=== PATIENT | female | born 1950 | race Caucasian/White ===

== ENCOUNTER 2017-02-19 15:56 | Inpatient (IN) ==
[2017-02-19] MEDS ORDERED: 0.9 % Sodium Chloride 1,000 ML IVC ONE ×2 (16:19→18:05)
[2017-02-19] MEDS ORDERED: Vancomycin 1,000 MG in D5% in Water 250 ML IVPB ONE (16:29)
[2017-02-19] MEDS ORDERED: Piperacillin/Tazobactam 3.375 GM in D5% in Water (Mini-Bag+) 100 ML IVPB ONE (16:29)
[2017-02-19 17:02] LABS: Basophils % 0.3 %; Eosinophils # 0.1 K/mcL (0.0-0.6); Hematocrit 31.7 % (35.3-44.9); Hemoglobin 10.5 g/dL (11.5-15.4); Immature Granulocytes % 0.4 % (0-4); Lymphocytes # 1.6 K/mcL (0.6-4.6); Lymphocytes % 13.2 %; Mean Corpuscular HGB Conc 33.1 g/dL (31.6-35.5); Mean Corpuscular Hemoglobin 29.3 pg (28.0-33.3); Mean Corpuscular Volume 88.5 fL (83.0-100.0); Mean Platelet Volume 8.4 fL (9.4-12.4); Monocytes # 0.8 K/mcL (0.0-1.3); Monocytes % 6.5 %; Neutrophils # 9.5 K/mcL (1.6-8.9); Platelet Count 391 K/mcL (140-400); Red Blood Count 3.58 M/mcL (3.82-4.97); Red Cell Distribution Width 13.4 % (11.5-14.5); Segmented Neutrophils % 78.6 %
--- NOTE | 2017-02-19 17:02 | Emergency Department Note ---
Disposition Clinical Impression: COPD exacerbation Cellulitis Qualifiers: Site of cellulitis: trunk Site of cellulitis of trunk: back Qualified Code(s): L03.312 - Cellulitis of back [any part except buttock] Altered mental status Qualifiers: Altered mental status type: unspecified Qualified Code(s): R41.82 - Altered mental status, unspecified Sepsis Qualifiers: Sepsis type: sepsis due to unspecified organism Qualified Code(s): A41.9 - Sepsis, unspecified organism Disposition: Admitted As Inpatient Condition: Fair General Adult HPI - General Chief complaint: ED Fever Stated complaint: fever Time Seen by Provider: 02/19/17 15:59 Source: patient, family, EMS Limitations: no limitations Nursing Notes Reviewed: Yes Vital Signs Reviewed: Yes - History of Present Illness HPI Narrative: 66-year-old female presents to the ED via EMS for complaints of a fever. Patient had thoracolumbar laminectomy done 1 month ago in [place] by Dr. Valadez. She states she had her 1 month appointment yesterday and she had an abscess on the incision site and the surgeon removed a chair and put her on a five-day course of Keflex. That visit she stated that her back is been in more pain and she has noted a fever of 101 at home. She states the area in her back is a 2 out of 10 pain when she is just sitting there with no radiation. She declines it as a stabbing pain that does not radiate. She does take 5 mg of hydrocodone for the pain and she says that takes care of a lot of the back pain. After speaking with family they stated that she may be taking more hydrocodone and she is prescribed as there were 94 pills in there today and she was prescribed 100 yesterday. She is to take one every 6 hours. Also states she has not been acting herself. These said she is talking about and being in the yard and washing jeans where she does not have a washer or a dryer. They also state that the wound on her back has gotten increasingly worse since yesterday. They stated the wound was a very small reddened area about the size of a nickel. Today when they changed the wound after the surgeon removed the suture they said it is quadrupled in size and has now purulent pus coming out of it. Pain Scale: 4 - Related Data Home Medications Medication Instructions Recorded Confirmed Acetaminophen [Tylenol] 500 mg PO Q6H PRN 02/19/17 02/19/17 Albuterol Sulfate [Ventolin Hfa] 2 puff IH Q4H PRN 02/19/17 02/19/17 Alendronate Sodium [Fosamax] 70 mg PO QWEEK 02/19/17 02/19/17 Antiox #11/Om3/Dha/Epa/Lut/Jasen 1 each PO BID 02/19/17 02/19/17 [Eye Health Adult 50+ Softgel] Cholecalciferol (D-3) [Vitamin D] 1,000 unit PO DAILY 02/19/17 02/19/17 Cyclobenzaprine [Flexeril] 10 mg PO TID PRN 02/19/17 02/19/17 DULoxetine [Cymbalta] 30 mg PO DAILY 02/19/17 02/19/17 Fluticasone Propionate Nasal 50 mcg NS BID 02/19/17 02/19/17 [Flonase] Fluticasone/Salmeterol [Advair Hfa 2 puff IH BID 02/19/17 02/19/17 230-21 Mcg Inhaler] Gabapentin [Neurontin] 600 mg PO TID 02/19/17 02/19/17 L. Acidophilus/Pectin, [place] 1 each PO DAILY 02/19/17 02/19/17 [Acidophilus Probiotic Capsule] LORazepam [Ativan] 1 mg PO TID PRN 02/19/17 02/19/17 Meloxicam [Mobic] 15 mg PO DAILY 02/19/17 02/19/17 Montelukast [Singulair] 10 mg PO HS 02/19/17 02/19/17 OxyCODONE/APAP 5/325 [Percocet 1 each PO Q6HR PRN 02/19/17 02/19/17 5/325 MG] Potassium Gluconate [Potassium] 99 mg PO DAILY 02/19/17 02/19/17 Trazodone HCl 100 mg PO HS 02/19/17 02/19/17 cephALEXin [Keflex] 500 mg PO QID 02/19/17 02/19/17 Allergies Allergy/AdvReac Type Severity Reaction Status Date / Time Sulfa (Sulfonamide AdvReac Rash Verified 02/19/17 16:07 Antibiotics) Constitutional: Reports: fever, weakness. Denies: chills, weight change Eyes: Denies: eye pain, eye discharge, vision change ENT ED: Denies: ear pain, throat pain, dental pain, hearing loss, epistaxis, congestion, dysphagia Cardiovascular: Denies: chest pain, palpitations, dyspnea on exertion, edema, syncope Respiratory: Denies: cough, dyspnea, wheezes, hemoptysis, stridor Gastrointestinal: Denies: abdominal pain, nausea, vomiting, diarrhea, constipation, hematemesis, melena, hematochezia Genitourinary: Denies: dysuria, frequency, hematuria, discharge Musculoskeletal: Denies: back pain, neck pain, arthralgia, myalgia Integumentary: Denies: rash, abrasion, lesions Neurological: Reports: weakness. Denies: headache, numbness, paresthesias, confusion, abnormal gait, vertigo Psychiatric: Denies: anxiety, depression, suicidal thoughts, homicidal thoughts , auditory hallucinations, visual hallucinations Endocrine: Reports: fatigue Hematological/Lymphatic: Denies: easy bleeding, easy bruising Past Medical History - Past Medical History Medical history: Reports: arthritis, COPD, migraine Surgical history: Reports: cholecystectomy, other Psychiatric history: Reports: anxiety, depression, PTSD [employer] history: Reports: bilateral tubal ligation - Social History Smoking Status: Current every day smoker Smokeless Tobacco Status: No Alcohol use: Reports: none Drug use: Reports: none Physical Exam - General General appearance: alert, in no apparent distress - Head Head exam: atraumatic, normocephalic, normal inspection - Chest Chest inspection: Present: normal inspection, symmetric chest wall rise - Respiratory Respiratory exam: Present: normal lung sounds bilaterally - Cardiovascular Cardiovascular exam: Present: normal rhythm, tachycardia, normal heart sounds - Abdominal Exam Abdominal exam: Present: soft, Non-Tender. Absent: tenderness, distention, guarding, rebound, rigidity - Back Exam Back exam: Present: other (Large 10 cm fluctuant draining with pus abscess directly in line with the incision site. Very painful to touch.) - Neurological Exam Neurological exam: Present: alert, oriented X3 (Is altered as she is mentioning things that she never happened happen to her. But she is oriented to person place and time) Course Course Narrative: 66-year-old female presents to the ED with complaints of rash and abscess on her back from surgical incision site status post 4 weeks ago. On arrival patient had respirations of 24/m she was tachycardic at 120s, and had a fever of 100.4. Therefore she met surgical criteria and the sepsis protocol was started. She was started on vancomycin and Zosyn after blood cultures were done. A CT of the thoracolumbar area was done to get better look at the abscess. A CTA of the chest was also done due to patient having shortness of breath and hypoxic for possible pulmonary embolism. Patient and family are okay with this plan. Vital Signs Temperature 100.4 F H 02/19/17 15:57 Pulse Rate 114 02/19/17 15:57 Respiratory Rate 22 02/19/17 15:57 Blood Pressure 114/67 02/19/17 15:57 O2 Sat by Pulse Oximetry 88 02/19/17 15:57 Temperature 100.4 F H 02/19/17 15:57 Pulse Rate 99 02/19/17 18:54 Respiratory Rate 16 02/19/17 22:11 Blood Pressure 140/80 02/19/17 22:11 O2 Sat by Pulse Oximetry 98 02/19/17 20:10 Oxygen Delivery Oxygen Delivery Nasal Cannula Medical Decision Making - MDM Narrative Medical decision making narrative: 66-year-old female presents to the ED complaining of fever and abscess on back from surgical site. Surgery was a laminectomy done by Dr. Jones and lidia Valentine , 4 weeks ago. Upon Arrival patient had respirations about 20 a fever of 100.4 and was tachycardic in the 120s and a likely site for infection therefore she met surge criteria have assessed per Marshal was started. IV did blood cultures and then started patient on vancomycin and Zosyn for empiric treatment. Also ordered CT scan of the thoracolumbar region to check for abscess tracking to the surgical site. Patient was also on oxygen upon arrival and was still hypoxic at 88%. Due to recent surgery and being hypoxic will order a CTA of the chest to rule out PE. 2053- Revaluation of the patient she is in bed sleeping, or waking up she is still confused and is having a slight amount shortness of breath. 2 nebs were ordered to help with her breathing as this could be a COPD exacerbation. After looking at lab she did have a white count of over 12,000, mild anemia, and no other lab abnormalities. Chest x-ray showed no acute pulmonary changes. CT of chest showed no pulmonary embolism but did have calcified opacities that were unchanged from previous CT. Lumbar and thoracic CT with contrast did not show abscess. After talking with patient and this being a nonsurgical matter we will try to admit this patient for sepsis, COPD exacerbation and altered mental status. He is in agreement with this plan. 2117-after talking to he has agreed to except the patient for admit. Patient is agreeable with this plan. Chest X-Ray 02/19/17 16:20 IMPRESSION: No acute abnormalities are seen in the chest D/ / Delgado Joyce MD / Delgado Joyce MD Interpreting Provider: Delgado Joyce MD Lumbar Spine CT 02/19/17 16:25 IMPRESSION: Recent postsurgical changes of the thoracolumbar spine, with removal of the transpedicular screws at T8 and extension of the posterior fusion hardware cranially. The posterior fusion hardware extends from T8-L5. The bipedicular T8 screws and the left T9 pedicular screw extends lateral to the vertebral bodies, through the costovertebral junction, of uncertain clinical significance. Otherwise no perihardware lucencies to suggest hardware failure. The study is limited due to associated streak artifact from the hardware. There is mild/moderate inflammatory changes within the back soft tissues, possibly representing postsurgical changes. Otherwise no formed fluid collection to suggest abscess. Stable appearance of the T11 compression fracture with mild 5 mm retropulsion of fragments into the spinal canal. Compared to the prior study, there is minimal compression of the right aspect of the T8 superior endplate. Stable severe degenerative changes of the lumbar spine as above. D/ / 02/19/2017 20:11:49 Koko Soto MD / jerardo Interpreting Provider: Koko Soto MD Thoracic Spine CT 02/19/17 16:25 IMPRESSION: Recent postsurgical changes of the thoracolumbar spine, with removal of the transpedicular screws at T8 and extension of the posterior fusion hardware cranially. The posterior fusion hardware extends from T8-L5. The bipedicular T8 screws and the left T9 pedicular screw extends lateral to the vertebral bodies, through the costovertebral junction, of uncertain clinical significance. Otherwise no perihardware lucencies to suggest hardware failure. The study is limited due to associated streak artifact from the hardware. There is mild/moderate inflammatory changes within the back soft tissues, possibly representing postsurgical changes. Otherwise no formed fluid collection to suggest abscess. Stable appearance of the T11 compression fracture with mild 5 mm retropulsion of fragments into the spinal canal. Compared to the prior study, there is minimal compression of the right aspect of the T8 superior endplate. Stable severe degenerative changes of the lumbar spine as above. D/ / 02/19/2017 20:11:49 Koko Soto MD / jerardo Interpreting Provider: Koko Soto MD Chest CTA 02/19/17 17:27 IMPRESSION: No CT evidence pulmonary embolism. Stable 7 mm right lower lobe noncalcified nodule, unchanged since the most remote available study 06/09/2015. See below recommendation. Thoracic spine CT is reported separately. D/ / Kenzie Patrick Cha, MD / Kenzie Patrick Cha, MD Interpreting Provider: Kenzie Patrick Cha, MD - Medical Records Medical records reviewed: Yes I reviewed the patient's medical records. - Lab Data Lab results reviewed: Yes I reviewed the patient's lab results. Result diagrams: 02/19/17 16:48 02/19/17 16:48 Lab Results 02/19/17 02/19/17 02/19/17 Range/Units 16:44 16:48 16:48 WBC 12.1 H (4.3-11.1) K/mcL RBC 3.58 L (3.82-4.97) M/mcL Hgb 10.5 L (11.5-15.4) g/dL Hct 31.7 L (35.3-44.9) % MCV 88.5 (83.0-100.0) fL MCH 29.3 (28.0-33.3) pg MCHC 33.1 (31.6-35.5) g/dL RDW 13.4 (11.5-14.5) % Plt Count 391 (140-400) K/mcL MPV 8.4 L (9.4-12.4) fL Immature Gran % 0.4 (0-4) % Seg Neutrophils % 78.6 % Lymphocytes % 13.2 % Monocytes % 6.5 % Eosinophils % 1.0 % Basophils % 0.3 % Neutrophils # 9.5 H (1.6-8.9) K/mcL Lymphocytes # 1.6 (0.6-4.6) K/mcL Monocytes # 0.8 (0.0-1.3) K/mcL Eosinophils # 0.1 (0.0-0.6) K/mcL Basophils # 0.0 (0.0-0.2) K/mcL PT 14.0 H (9.4-12.1) Seconds INR 1.3 APTT 31.1 (26.0-36.0) Seconds VBG pH (7.32-7.42) pH Units VBG pCO2 (41-51) mmHg VBG pO2 (25-40) mmHg VBG HCO3 (21-27) mEq/L Sodium (136-145) mEq/L Potassium (3.5-4.5) mEq/L Chloride (98-109) mEq/L Carbon Dioxide (19-29) mEq/L BUN (7-20) mg/dL Creatinine (0.57-1.11) mg/dL Est GFR ( Amer) (> 60) Est GFR (Non-Af Amer) (> 60) BUN/Creatinine Ratio (6-26) Glucose (70-99) mg/dL Calculated Osmolality (280-300) Lactic Acid (0.5-2.2) mmol/L Calcium (8.6-10.8) mg/dL Phosphorus (2.3-4.7) mg/dL Magnesium (1.6-2.6) mg/dL Total Bilirubin (0.2-1.2) mg/dL Direct Bilirubin (0.0-0.5) mg/dL Indirect Bilirubin (0.0-1.2) mg/dL AST (5-34) Units/L ALT (0-55) Units/L Alkaline Phosphatase (38-126) Units/L Troponin I (0-0.03) ng/mL Serum Total Protein (6.0-8.3) g/dL Albumin (3.5-5.0) g/dL Globulin (2.4-3.5) g/dL Albumin/Globulin Ratio (1.1-2.2) Urine Color Yellow (Yellow) Urine Clarity Clear (Clear) Urine pH 6.5 (5.0-8.0) pH Units Ur Specific [place] 1.007 L (1.010-1.025) Urine Protein Negative (Neg-Trace) mg/dL Urine Glucose (UA) Normal (Normal) mg/dL Urine Ketones Negative (Negative) mg/dL Urine Blood Negative (Negative) Urine Nitrite Negative (Negative) Urine Bilirubin Negative (Negative) Urine Urobilinogen Normal (Normal) mg/dL Ur Leukocyte Esterase Small H (Negative) Urine Microscopic RBC 0-3 (0-3) per hpf Urine Microscopic WBC 0-3 (0-3) per hpf Ur Squamous Epith Cells Few (None-Few) per lpf Urine Bacteria Few (None-Few) per hpf Ur Culture Indicated? YES A (NO) 02/19/17 02/19/17 02/19/17 Range/Units 16:48 16:48 16:48 WBC (4.3-11.1) K/mcL RBC (3.82-4.97) M/mcL Hgb (11.5-15.4) g/dL Hct (35.3-44.9) % MCV (83.0-100.0) fL MCH (28.0-33.3) pg MCHC (31.6-35.5) g/dL RDW (11.5-14.5) % Plt Count (140-400) K/mcL MPV (9.4-12.4) fL Immature Gran % (0-4) % Seg Neutrophils % % Lymphocytes % % Monocytes % % Eosinophils % % Basophils % % Neutrophils # (1.6-8.9) K/mcL Lymphocytes # (0.6-4.6) K/mcL Monocytes # (0.0-1.3) K/mcL Eosinophils # (0.0-0.6) K/mcL Basophils # (0.0-0.2) K/mcL PT (9.4-12.1) Seconds INR APTT (26.0-36.0) Seconds VBG pH (7.32-7.42) pH Units VBG pCO2 (41-51) mmHg VBG pO2 (25-40) mmHg VBG HCO3 (21-27) mEq/L Sodium 129 L (136-145) mEq/L Potassium 3.6 (3.5-4.5) mEq/L Chloride 100 (98-109) mEq/L Carbon Dioxide 23 (19-29) mEq/L BUN 7 (7-20) mg/dL Creatinine 0.61 (0.57-1.11) mg/dL Est GFR ( Amer) > 60 (> 60) Est GFR (Non-Af Amer) > 60 (> 60) BUN/Creatinine Ratio 11 (6-26) Glucose 95 (70-99) mg/dL Calculated Osmolality 266 L (280-300) Lactic Acid 0.8 (0.5-2.2) mmol/L Calcium 8.1 L (8.6-10.8) mg/dL Phosphorus 3.0 (2.3-4.7) mg/dL Magnesium 1.2 L (1.6-2.6) mg/dL Total Bilirubin 0.4 (0.2-1.2) mg/dL Direct Bilirubin 0.1 (0.0-0.5) mg/dL Indirect Bilirubin 0.3 (0.0-1.2) mg/dL AST 14 (5-34) Units/L ALT 6 (0-55) Units/L Alkaline Phosphatase 131 H (38-126) Units/L Troponin I 0.01 (0-0.03) ng/mL Serum Total Protein 5.8 L (6.0-8.3) g/dL Albumin 2.7 L (3.5-5.0) g/dL Globulin 3.1 (2.4-3.5) g/dL Albumin/Globulin Ratio 0.9 L (1.1-2.2) Urine Color (Yellow) Urine Clarity (Clear) Urine pH (5.0-8.0) pH Units Ur Specific [place] (1.010-1.025) Urine Protein (Neg-Trace) mg/dL Urine Glucose (UA) (Normal) mg/dL Urine Ketones (Negative) mg/dL Urine Blood (Negative) Urine Nitrite (Negative) Urine Bilirubin (Negative) Urine Urobilinogen (Normal) mg/dL Ur Leukocyte Esterase (Negative) Urine Microscopic RBC (0-3) per hpf Urine Microscopic WBC (0-3) per hpf Ur Squamous Epith Cells (None-Few) per lpf Urine Bacteria (None-Few) per hpf Ur Culture Indicated? (NO) 02/19/17 Range/Units 17:10 WBC (4.3-11.1) K/mcL RBC (3.82-4.97) M/mcL Hgb (11.5-15.4) g/dL Hct (35.3-44.9) % MCV (83.0-100.0) fL MCH (28.0-33.3) pg MCHC (31.6-35.5) g/dL RDW (11.5-14.5) % Plt Count (140-400) K/mcL MPV (9.4-12.4) fL Immature Gran % (0-4) % Seg Neutrophils % % Lymphocytes % % Monocytes % % Eosinophils % % Basophils % % Neutrophils # (1.6-8.9) K/mcL Lymphocytes # (0.6-4.6) K/mcL Monocytes # (0.0-1.3) K/mcL Eosinophils # (0.0-0.6) K/mcL Basophils # (0.0-0.2) K/mcL PT (9.4-12.1) Seconds INR APTT (26.0-36.0) Seconds VBG pH 7.32 (7.32-7.42) pH Units VBG pCO2 44 (41-51) mmHg VBG pO2 57 H (25-40) mmHg VBG HCO3 22.7 (21-27) mEq/L Sodium (136-145) mEq/L Potassium (3.5-4.5) mEq/L Chloride (98-109) mEq/L Carbon Dioxide (19-29) mEq/L BUN (7-20) mg/dL Creatinine (0.57-1.11) mg/dL Est GFR ( Amer) (> 60) Est GFR (Non-Af Amer) (> 60) BUN/Creatinine Ratio (6-26) Glucose (70-99) mg/dL Calculated Osmolality (280-300) Lactic Acid (0.5-2.2) mmol/L Calcium (8.6-10.8) mg/dL Phosphorus (2.3-4.7) mg/dL Magnesium (1.6-2.6) mg/dL Total Bilirubin (0.2-1.2) mg/dL Direct Bilirubin (0.0-0.5) mg/dL Indirect Bilirubin (0.0-1.2) mg/dL AST (5-34) Units/L ALT (0-55) Units/L Alkaline Phosphatase (38-126) Units/L Troponin I (0-0.03) ng/mL Serum Total Protein (6.0-8.3) g/dL Albumin (3.5-5.0) g/dL Globulin (2.4-3.5) g/dL Albumin/Globulin Ratio (1.1-2.2) Urine Color (Yellow) Urine Clarity (Clear) Urine pH (5.0-8.0) pH Units Ur Specific [place] (1.010-1.025) Urine Protein (Neg-Trace) mg/dL Urine Glucose (UA) (Normal) mg/dL Urine Ketones (Negative) mg/dL Urine Blood (Negative) Urine Nitrite (Negative) Urine Bilirubin (Negative) Urine Urobilinogen (Normal) mg/dL Ur Leukocyte Esterase (Negative) Urine Microscopic RBC (0-3) per hpf Urine Microscopic WBC (0-3) per hpf Ur Squamous Epith Cells (None-Few) per lpf Urine Bacteria (None-Few) per hpf Ur Culture Indicated? (NO) - Radiology Data Radiology results reviewed: Yes I reviewed the patient's radiology results. - EKG Data EKG #1 EKG attestation: Yes I reviewed and interpreted this EKG. EKG results narrative: EGD done 1638. Sinus tachycardia rate 99, ND interval 139, QRS 97, QTC 408, normal axis no acute ST changes. No acute T-wave abnormalities. Poor R wave progression. No signs of WPW or Brugada syndrome. Compared to EKG done where there is no acute changes based on old EKG. EKG shows normal: sinus rhythm Rate: tachycardia Rhythm: NSR [place]/QRS: normal When compared to previous EKG there are: no significant changes Interpretation: no acute changes, normal EKG, unchanged when compared to prior tracing (date) Critical Care Time Critical Care Time: Yes Total Critical Care Time: 35 Attestation: The high probability of a clinically significant, sudden or life threatening deterioration of the [resp, cv] system(s) required my full and direct attention , intervention and personal management. The aggregate critical care time was [35 ] minutes. This time is in addition to time spent performing reported procedures but includes the following: [X] Data Review and interpretation [X] Patient assessment and monitoring of vital signs [X] Documentation [X] Medication orders and management Attestation Statement - Attestation Attestation: I personally interviewed and examined this patient and my medical decision- making was reviewed with the Resident Physician, Dr. Sim. I agree with the documented findings, disposition and treatment plan as described except to the extent set forth below. Patient is a 66-year-old white female who presented to the emergency department for evaluation of infection of the postop wound. Patient had radical lumbar back surgery performed in [facility] one month ago. Her one-month checkup was yesterday she was seen in the office had a retained stitch removed in the wrist and slight redness around the wound that family describes about the size of a nickel, and patient was started on Keflex. Patient has not quite had 24 hours of antibiotics and states that the pain to the affected area of the swelling in the size the redness has dramatically increased. Since that time she developed a fever and some mild confusion at home and has also been requiring more oxygen at home for shortness of breath. Patient afebrile and based on vital signs we initiated sepsis protocol. I agree with patient's physical exam findings as documented. On lab evaluation patient with mild leukocytosis, normal lactate, normal chest x -ray and CT scan of the chest. CT of the thoracic and lumbar spine does not show any appreciable abscess just changes consistent with cellulitis. Patient has already been covered with empiric IV antibiotics, and vitals have improved with IV fluids. Since there is no reason for acute surgical intervention at this time we will admit the patient medically for an acute exacerbation of COPD as well as cellulitis of her postop wound. Case discussed with hospitalist who accepted patient for admission here at [place].
[2017-02-19 17:14] LABS: Bilirubin,Urine Negative (Negative); Blood,Urine Negative (Negative); Clarity,Urine Clear (Clear); Color,Urine Yellow (Yellow); Glucose,Urine (UA) Normal (Normal); Ketones,Urine Negative (Negative); Leukocyte Esterase,Urine Small (Negative); Nitrite,Urine Negative (Negative); PH,Urine 6.5 pH Units (5.0-8.0); Protein,Urine Negative (Neg-Trace); Specific Gravity,Urine 1.007 (1.010-1.025); Urobilinogen,Urine Normal (Normal)
[2017-02-19 17:14] LABS: INR 1.3
[2017-02-19 17:16] LABS: Activated Partial Thrombo Time 31.1 Seconds (26.0-36.0)
[2017-02-19 17:18] LABS: Alanine Aminotransferase 6 Units/L (0-55); Albumin 2.7 g/dL (3.5-5.0); Albumin/Globulin Ratio 0.9 (1.1-2.2); Alkaline Phosphatase 131 Units/L (38-126); Aspartate Amino Transferase 14 Units/L (5-34); BUN/Creatinine Ratio 11 (6-26); Bilirubin,Direct 0.1 mg/dL (0.0-0.5); Bilirubin,Indirect 0.3 mg/dL (0.0-1.2); Bilirubin,Total 0.4 mg/dL (0.2-1.2); Blood Urea Nitrogen 7 mg/dL (7-20); Calcium 8.1 mg/dL (8.6-10.8); Carbon Dioxide 23 mEq/L (19-29); Chloride 100 mEq/L (98-109); Globulin 3.1 g/dL (2.4-3.5); Glucose 95 mg/dL (70-99); Magnesium 1.2 mg/dL (1.6-2.6); Osmolality,Calculated 266 (280-300); Potassium 3.6 mEq/L (3.5-4.5); Sodium 129 mEq/L (136-145); Total Protein 5.8 g/dL (6.0-8.3); eGFR For African Americans > 60 (> 60); eGFR For Non-African Americans > 60 (> 60)
[2017-02-19 17:25] LABS: VBG HCO3 22.7 mEq/L (21-27); VBG PH 7.32 pH Units (7.32-7.42)
[2017-02-19 17:25] LABS: Bacteria,Urine Few per hpf (None-Few); RBC,Urine 0-3 per hpf (0-3); Squamous Epithelial Cell,Urine Few per lpf (None-Few); WBC,Urine 0-3 per hpf (0-3)
[2017-02-19] MEDS ORDERED: Ipratropium/Albuterol Neb 3 ML IH ONE (19:58)
[2017-02-20] MEDS ORDERED: Acetaminophen 325 MG TABLET PO PRN (01:56)
[2017-02-20] MEDS ORDERED: Naloxone 0.4 MG/ML INJ IVP PRN (01:56)
[2017-02-20] MEDS ORDERED: *HR* Morphine 2 MG/ML SYRINGE IVP PRN (01:56)
[2017-02-20] MEDS ORDERED: Vancomycin 1,000 MG in D5% in Water 250 ML IVPB SCH (02:00)
[2017-02-20] MEDS ORDERED: NON-FORMULARY MEDICATION 1 EACH EACH (Alendronate Sodium [Fosamax] 70 MG) PO SCH (02:00)
[2017-02-20] MEDS ORDERED: Magnesium Sulfate 2 GM in D5% in Water 100 ML IVPB ONE (02:07)
--- NOTE | 2017-02-20 02:09 | Internal Med History&Physical ---
Date of Encounter: 02/20/17 Time of Encounter: 02:08 Assessment and Plan (1) Cellulitis of mid back region Current visit: Yes Status: Acute Pt is s/p thoracolumbar laminectomy done 1 month ago in [place] by Dr. Valadez. She was noted to have surgical site infection which is worsening. Patient has a cellulitis but the presence of abscess is uncertain. CT scan of the back is compromised due to artifacts from the hardware. We will obtain ultrasound scan to evaluate for abscess. Will check CRP and ESR. If there is any evidence of abscess - consider orthopedic consultation here versus transfer to her operating surgeon. Treat with vancomycin and Zosyn intravenously. (2) Sepsis Current visit: Yes Status: Acute Likely secondary to skin/soft tissue infection. treat with Vancomycin and zosyn. Qualifiers: Sepsis type: sepsis due to unspecified organism Qualified Code(s): A41.9 - Sepsis, unspecified organism (3) COPD (chronic obstructive pulmonary disease) Current visit: Yes Status: Chronic Treat with bronchodilators Qualifiers: COPD type: unspecified COPD Qualified Code(s): J44.9 - Chronic obstructive pulmonary disease, unspecified (4) Altered mental status Current visit: Yes Status: Acute Possibly related to sepsis. Improved now Qualifiers: Altered mental status type: unspecified Qualified Code(s): R41.82 - Altered mental status, unspecified (5) DVT prophylaxis Current visit: Yes Status: Acute subcutaneous heparin Internal Medicine - H&P: HPI Chief complaint: Fever Admitted From: Emergency Dept Plans for Post Hospital Care: Home History of present illness: Ms. Mckoy is a 66 year old female With h/o COPD and h/o prior back surgeries, with last surgery - thoracolumbar laminectomy done 1 month ago in [place] by Dr. Valadez. She had her 1 month appointment on 02/18/17 and was noted to have some swelling at the incision site. Patient reports that, there was apparently suture material, which was removed and the doctor expressed some pus. She was started on Keflex. She notices some pus at home, swelling, fever, and pain at the site. Pain is Sharp, moderate, non radiating. She also reports that she was acting goofy at home. She reports that she had been to her PCP earlier this week for cramps in the legs and was thought to be dehydrated and was advised to drink plenty of fluids. She reports chronic cough with whitish sputum production. She has exertional shortness of breath. She denies chest pain. She denies abdominal pain, nausea, vomiting, dysuria, hematuria, changes in bowel habits. She was evaluated in the emergency department and was thought to have cellulitis of the back. She was given vancomycin and Zosyn. She is admitted to the hospitalist service for further management. She was hypoxic with oxygen saturation of 88% in the emergency department. She had a CT and chest done, which was negative for pulmonary embolism. CT of the spine did not show definite abscess, but the study was limited by artifacts from the hardware. Past Med Surg Social Fam HX - Past Medical History Medical history: arthritis, COPD Psychiatric history: anxiety, depression, PTSD - Past Surgical History Surgical History: cholecystectomy, other - Social History Smoking Status: Former smoker Smokeless Tobacco Status: No Alcohol use: none Drug use: none - Family History Father Name: VERN DUFF Living Status: Age at : 73 Cause of : TRAMA Hx Family Cardiac Disorders: Yes Internal Medicine - H&P: Meds Acetaminophen [Tylenol] 500 mg PO Q6H PRN 02/19/17 [History] Albuterol Sulfate [Ventolin Hfa] 2 puff IH Q4H PRN 02/19/17 [History] Alendronate Sodium [Fosamax] 70 mg PO QWEEK 02/19/17 [History] Antiox #11/Om3/Dha/Epa/Lut/Jasen [Eye Health Adult 50+ Softgel] 1 each PO BID [History] Cholecalciferol (D-3) [Vitamin D] 1,000 unit PO DAILY 02/19/17 [History] Cyclobenzaprine [Flexeril] 10 mg PO TID PRN 02/19/17 [History] DULoxetine [Cymbalta] 30 mg PO DAILY 02/19/17 [History] Fluticasone Propionate Nasal [Flonase] 50 mcg NS BID 02/19/17 [History] Fluticasone/Salmeterol [Advair Hfa 230-21 Mcg Inhaler] 2 puff IH BID 02/19/17 [ History] Gabapentin [Neurontin] 600 mg PO TID 02/19/17 [History] L. Acidophilus/Pectin, [place] [Acidophilus Probiotic Capsule] 1 each PO DAILY [History] LORazepam [Ativan] 1 mg PO TID PRN 02/19/17 [History] Meloxicam [Mobic] 15 mg PO DAILY 02/19/17 [History] Montelukast [Singulair] 10 mg PO HS 02/19/17 [History] OxyCODONE/APAP 5/325 [Percocet 5/325 MG] 1 each PO Q6HR PRN 02/19/17 [History] Potassium Gluconate [Potassium] 99 mg PO DAILY 02/19/17 [History] Trazodone HCl 100 mg PO HS 02/19/17 [History] cephALEXin [Keflex] 500 mg PO QID 02/19/17 [History] Allergies Sulfa (Sulfonamide Antibiotics) Adverse Reaction (Verified 02/19/17 16:07) Rash All Systems PM: A 10-system review of systems was performed and is negative for pertinent findings except as documented above in the HPI. - Constitutional Vitals: Temp Pulse Resp BP Pulse Ox 98.4 F 109 20 122/75 95 02/20/17 00:21 02/20/17 00:21 02/20/17 00:21 02/20/17 00:21 02/20/17 00:21 Exam: General: Not in acute distress at the time of my evaluation HEENT: Oral mucosa is moist. No conjunctival palor or scleral icterus Neck: No obvious neck swellings Lungs: Bilaterally clear to present. Few right basilar crackles Cardiac: Regular rate and rhythm. No significant murmurs Abdomen: Soft, non tender. Bowel sounds present Genitourinary: No browne catheter Neurological: Alert and oriented. No gross localizing deficits Psych: Not aggressive or agitated Extremities: no significant leg edema. Spine: There is incision over the thoracic and lumbar spine. There is an oval swelling over the lower thoracic spine (no fluctuance), with an opening, but no spontaneous drainage present. There is overlying erythema, local warmth present Skin: No generalized rash Internal Med - H&P Results - Labs CBC & Chem 7: 02/20/17 06:41 02/20/17 06:41 - EKG Data -: EKG Interpreted by Myself EKG shows normal: sinus rhythm - EKG Data EKG comments: Poor R wave progress in the anterior leads 02/20/17 06:03 - Impressions ITS Impressions Chest X-Ray 02/19/17 16:20 IMPRESSION: No acute abnormalities are seen in the chest D/ / Delgado Joyce MD / Delgado Joyce MD Interpreting Provider: Delgado Joyce MD Lumbar Spine CT 02/19/17 16:25 IMPRESSION: Recent postsurgical changes of the thoracolumbar spine, with removal of the transpedicular screws at T8 and extension of the posterior fusion hardware cranially. The posterior fusion hardware extends from T8-L5. The bipedicular T8 screws and the left T9 pedicular screw extends lateral to the vertebral bodies, through the costovertebral junction, of uncertain clinical significance. Otherwise no perihardware lucencies to suggest hardware failure. The study is limited due to associated streak artifact from the hardware. There is mild/moderate inflammatory changes within the back soft tissues, possibly representing postsurgical changes. Otherwise no formed fluid collection to suggest abscess. Stable appearance of the T11 compression fracture with mild 5 mm retropulsion of fragments into the spinal canal. Compared to the prior study, there is minimal compression of the right aspect of the T8 superior endplate. Stable severe degenerative changes of the lumbar spine as above. D/ / 02/19/2017 20:11:49 Koko Soto MD / jerardo Interpreting Provider: Koko Soto MD Thoracic Spine CT 02/19/17 16:25 IMPRESSION: Recent postsurgical changes of the thoracolumbar spine, with removal of the transpedicular screws at T8 and extension of the posterior fusion hardware cranially. The posterior fusion hardware extends from T8-L5. The bipedicular T8 screws and the left T9 pedicular screw extends lateral to the vertebral bodies, through the costovertebral junction, of uncertain clinical significance. Otherwise no perihardware lucencies to suggest hardware failure. The study is limited due to associated streak artifact from the hardware. There is mild/moderate inflammatory changes within the back soft tissues, possibly representing postsurgical changes. Otherwise no formed fluid collection to suggest abscess. Stable appearance of the T11 compression fracture with mild 5 mm retropulsion of fragments into the spinal canal. Compared to the prior study, there is minimal compression of the right aspect of the T8 superior endplate. Stable severe degenerative changes of the lumbar spine as above. D/ / 02/19/2017 20:11:49 Koko Soto MD / jerardo Interpreting Provider: Koko Soto MD Chest CTA 02/19/17 17:27 IMPRESSION: No CT evidence pulmonary embolism. Stable 7 mm right lower lobe noncalcified nodule, unchanged since the most remote available study 06/09/2015. See below recommendation. Thoracic spine CT is reported separately. D/ / Knezie Patrick Cha, MD / Kenzie Patrick Cha, MD Interpreting Provider: Kenzie Patrick Cha, MD
[2017-02-20] MEDS: 0.9 % Sodium Chloride 1,000 ML IVC SCH (02:30)
[2017-02-20] MEDS: *HR* Heparin 5,000 UNIT/ML VIAL SQ SCH ×3 (06:17→21:11)
[2017-02-20] MEDS: Vancomycin 1,000 MG in D5% in Water 250 ML IVPB SCH ×2 (06:17→18:39)
[2017-02-20 07:01] LABS: Basophils % 0.3 %; Eosinophils # 0.3 K/mcL (0.0-0.6); Eosinophils % 2.7 %; Hematocrit 31.9 % (35.3-44.9); Hemoglobin 10.3 g/dL (11.5-15.4); Immature Granulocytes % 0.2 % (0-4); Lymphocytes % 20.9 %; Mean Corpuscular HGB Conc 32.3 g/dL (31.6-35.5); Mean Corpuscular Hemoglobin 29.3 pg (28.0-33.3); Mean Corpuscular Volume 90.9 fL (83.0-100.0); Mean Platelet Volume 8.8 fL (9.4-12.4); Monocytes % 10.9 %; Neutrophils # 6.1 K/mcL (1.6-8.9); Platelet Count 389 K/mcL (140-400); Red Blood Count 3.51 M/mcL (3.82-4.97); Red Cell Distribution Width 13.8 % (11.5-14.5)
[2017-02-20 07:13] LABS: BUN/Creatinine Ratio 5 (6-26); Calcium 8.3 mg/dL (8.6-10.8); Carbon Dioxide 24 mEq/L (19-29); Chloride 108 mEq/L (98-109); Glucose 109 mg/dL (70-99); Magnesium 2.1 mg/dL (1.6-2.6); Osmolality,Calculated 279 (280-300); Potassium 3.9 mEq/L (3.5-4.5); eGFR For African Americans > 60 (> 60); eGFR For Non-African Americans > 60 (> 60)
[2017-02-20 07:17] LABS: Blood Urea Nitrogen 3 mg/dL (7-20); Sodium 136 mEq/L (136-145)
[2017-02-20] MEDS: Piperacillin/Tazobactam 3.375 GM in D5% in Water (Mini-Bag+) 100 ML IVPB SCH ×2 (08:16→18:37)
[2017-02-20] MEDS: Gabapentin 300 MG CAPSULE PO SCH ×3 (08:19→21:10)
[2017-02-20] MEDS: Cholecalciferol (D-3) 1,000 UNIT TABLET PO SCH (08:19)
[2017-02-20] MEDS: Lactobacillus 1 EACH CAP.SPRINK PO SCH (08:20)
[2017-02-20] MEDS: Fluticasone Propionate Nasal 50 MCG/SPRAY BOTTLE NS SCH ×2 (08:32→21:10)
[2017-02-20] MEDS: *HR* OxyCODONE/APAP 5/325 TABLET PO PRN ×2 (08:37→21:10)
[2017-02-20] MEDS: Ipratropium/Albuterol Neb 3 ML IH SCH ×4 (09:06→21:50)
[2017-02-20] MEDS: Budesonide/Formoterol 80/4.5 MDI IH SCH ×2 (11:17→21:50)
--- NOTE | 2017-02-20 14:00 | Internal Med Progress Note ---
Date of Encounter: 02/20/17 Time of Encounter: 13:56 - Assessment and plan (1) Sepsis Current Visit: Yes Status: Resolved Assessment and plan: due cellulites and surgical ite ulcer over thoracic spine Improving cont broad spec abx /u on blood cx and wound cx wound cx growing G+ve cocci Qualifiers: Sepsis type: sepsis due to unspecified organism Qualified Code(s): A41.9 - Sepsis, unspecified organism (2) Cellulitis of mid back region Current Visit: Yes Status: Acute (3) Wound infection complicating hardware Current Visit: Yes Status: Acute Assessment and plan: Reviewed U/S of Thoracic spine - showed demonstrates a heterogeneous poorly demarcated fluid collection measuring 4.8 x 1.9 cm. This is suggestive of a phlegmonous collection and appears to extend to the skin surface. Concerned for possible hardware infection too since pt's ESR and CRP significantly elevated at 44, 114 Wound cx growing G+ve cocci cont Zosyn and Vanco Placed a call to surgeon Dr. Jones couple of time.. waiting on his call back Qualifiers: Qualified Code(s): T84.7XXA - Infection and inflammatory reaction due to other internal orthopedic prosthetic devices, implants and grafts, initial encounter (4) S/P laminectomy Current Visit: Yes Status: Acute (5) Altered mental status Current Visit: Yes Status: Resolved Assessment and plan: due to sepsis resolved Qualifiers: Altered mental status type: unspecified Qualified Code(s): R41.82 - Altered mental status, unspecified (6) COPD (chronic obstructive pulmonary disease) Current Visit: Yes Status: Chronic Assessment and plan: stab;e not in exacerbation cont home regimen Qualifiers: COPD type: unspecified COPD Qualified Code(s): J44.9 - Chronic obstructive pulmonary disease, unspecified (7) DVT prophylaxis Current Visit: Yes Status: Acute Assessment and plan: on SQ Heparin - Subjective Interval history: Ms. Mckoy is a 66 year old female With h/o COPD and h/o prior back surgeries, with last surgery - thoracolumbar laminectomy done 1 month ago in [place] by Dr. Hemant Jones . Pt did see him as f/u appt 3 days ago, at that she happened to have some cellulitis and infection of surgical site with pus drainage. Dr. Jones placed her ON PO Keflex and sent her home. Apparently from last 2 days she started having more sanguinous discharge coming through , as well as more swelling and erythema around the incision site noticed. Pt is resting comfortably now. Stated her pain is better today, however last 2 days she had unbearable pain. No CP / SOB - Constitutional Vitals: Temp Pulse Resp BP Pulse Ox 97.9 F 87 16 107/65 96 02/20/17 10:22 02/20/17 10:22 02/20/17 10:22 02/20/17 10:22 02/20/17 10:22 General appearance: Present: A&O X 3, no acute distress - Respiratory Respiratory exam: Present: CTAB. Absent: accessory muscle use, rales, rhonchi, wheezes - Cardiovascular Cardiovascular exam: Present: RRR, +S1, +S2. Absent: diastolic murmur, gallop, rubs, systolic murmur - Back Exam Additional comments: surgical scar over upper and lower back noticed.. a small 0.5 to 1 cm size opening noticed in the middle of scar over thorasic vertebral region. saro sangunious discharge +, mild erythema noticed around the open wound - Neurological Exam Neurological exam: Present: oriented X3, strengths equal and symetr throughout. Absent: motor sensory deficit - Psychiatric Psychiatric exam: Present: normal affect, normal mood Internal Medicine: Result - Labs CBC & Chem 7: 02/20/17 06:41 02/20/17 06:41 Labs: Short CBC 02/20/17 Range/Units 06:41 WBC 9.3 (4.3-11.1) K/mcL Hgb 10.3 L (11.5-15.4) g/dL Hct 31.9 L (35.3-44.9) % Plt Count 389 (140-400) K/mcL Neutrophils # 6.1 (1.6-8.9) K/mcL BMP 02/20/17 06:41 Sodium 136 D Potassium 3.9 Chloride 108 Carbon Dioxide 24 BUN 3 L Creatinine 0.62 Glucose 109 H Calcium 8.3 L - ABG Interpretation ABG results: PT/INR, D-dimer PT 14.0 Seconds (9.4-12.1) H 02/19/17 16:48 - Impressions Impressions Abdomen Ultrasound 02/20/17 09:00 IMPRESSION: Phlegmonous collection in the area of concern within the midline with apparent sinus tract to the skin surface. There is no well-formed abscess at this time however the clinical history supports this is an infected fluid collection. D/ / 02/20/2017 10:37:38 Sukh Cueva MD / prudencio Interpreting Provider: Sukh Cueva MD Consult Discharge Plan - Plan
[2017-02-20] MEDS: *HR* LORazepam 1 MG TABLET PO PRN (18:37)
[2017-02-20] MEDS: traZODone 50 MG TABLET PO SCH (21:11)
[2017-02-21] MEDS: *HR* OxyCODONE/APAP 5/325 TABLET PO PRN ×4 (03:19→23:11)
[2017-02-21] MEDS: Piperacillin/Tazobactam 3.375 GM in D5% in Water (Mini-Bag+) 100 ML IVPB SCH ×2 (03:20→12:33)
[2017-02-21 04:11] LABS: Basophils % 0.5 %; Eosinophils # 0.2 K/mcL (0.0-0.6); Eosinophils % 3.5 %; Hematocrit 32.7 % (35.3-44.9); Hemoglobin 10.2 g/dL (11.5-15.4); Immature Granulocytes % 0.3 % (0-4); Lymphocytes # 1.9 K/mcL (0.6-4.6); Lymphocytes % 32.3 %; Mean Corpuscular HGB Conc 31.2 g/dL (31.6-35.5); Mean Corpuscular Hemoglobin 28.4 pg (28.0-33.3); Mean Corpuscular Volume 91.1 fL (83.0-100.0); Mean Platelet Volume 8.5 fL (9.4-12.4); Monocytes # 0.6 K/mcL (0.0-1.3); Monocytes % 9.8 %; Neutrophils # 3.1 K/mcL (1.6-8.9); Platelet Count 426 K/mcL (140-400); Red Blood Count 3.59 M/mcL (3.82-4.97); Red Cell Distribution Width 13.6 % (11.5-14.5); Segmented Neutrophils % 53.6 %
[2017-02-21 04:29] LABS: BUN/Creatinine Ratio 10 (6-26); Blood Urea Nitrogen 6 mg/dL (7-20); C-Reactive Protein 73 mg/L (Less than 5); Calcium 8.5 mg/dL (8.6-10.8); Carbon Dioxide 24 mEq/L (19-29); Chloride 107 mEq/L (98-109); Glucose 100 mg/dL (70-99); Osmolality,Calculated 284 (280-300); Potassium 3.8 mEq/L (3.5-4.5); Sodium 138 mEq/L (136-145); eGFR For African Americans > 60 (> 60); eGFR For Non-African Americans > 60 (> 60)
[2017-02-21] MEDS: Ipratropium/Albuterol Neb 3 ML IH SCH ×4 (04:37→22:57)
[2017-02-21] MEDS: *HR* Heparin 5,000 UNIT/ML VIAL SQ SCH ×3 (05:54→21:04)
[2017-02-21] MEDS: 0.9 % Sodium Chloride 1,000 ML IVC SCH (05:55)
[2017-02-21] MEDS: Vancomycin 1,000 MG in D5% in Water 250 ML IVPB SCH ×2 (05:56→18:34)
[2017-02-21] MEDS: Fluticasone Propionate Nasal 50 MCG/SPRAY BOTTLE NS SCH ×2 (09:18→21:03)
[2017-02-21] MEDS: Gabapentin 300 MG CAPSULE PO SCH ×3 (09:18→21:04)
[2017-02-21] MEDS: Lactobacillus 1 EACH CAP.SPRINK PO SCH (09:18)
[2017-02-21] MEDS: Cholecalciferol (D-3) 1,000 UNIT TABLET PO SCH (09:18)
[2017-02-21] MEDS: Budesonide/Formoterol 80/4.5 MDI IH SCH ×2 (10:28→22:57)
--- NOTE | 2017-02-21 12:11 | Internal Med Progress Note ---
Date of Encounter: 02/21/17 Time of Encounter: 12:07 - Assessment and plan (1) Sepsis Current Visit: Yes Status: Resolved Assessment and plan: due to cellulites and surgical site ulcer over thoracic spine Improving cont broad spec abx blood cx- no growth so far wound cx growing G+ve cocci Qualifiers: Sepsis type: sepsis due to unspecified organism Qualified Code(s): A41.9 - Sepsis, unspecified organism (2) Cellulitis of mid back region Current Visit: Yes Status: Acute (3) Wound infection complicating hardware Current Visit: Yes Status: Acute Assessment and plan: Reviewed U/S of Thoracic spine - showed demonstrates a heterogeneous poorly demarcated fluid collection measuring 4.8 x 1.9 cm. This is suggestive of a phlegms collection and appears to extend to the skin surface. Concerned for possible hardware infection too since pt's ESR and CRP significantly elevated at 44, 114 Wound cx growing G+ve cocci Blood cx - no growth so far Spoke to Dr. Jones's ) [employer] TECHNICIAN Mr. Spence @ [phone] and U/S of spine findings At this point since her blood cx are not growing any bacteria , there is no need to go back to OR for any wash off and hardware infection also very less likely however given her extensive back surgeries with lot of hardware in it .. she does need chcf IV abx to prevent further hardware infection will cont Zosyn and Vanco f/u on wound cx results Consulted ID Qualifiers: Qualified Code(s): T84.7XXA - Infection and inflammatory reaction due to other internal orthopedic prosthetic devices, implants and grafts, initial encounter (4) S/P laminectomy Current Visit: Yes Status: Acute (5) Altered mental status Current Visit: Yes Status: Resolved Assessment and plan: due to sepsis resolved Qualifiers: Altered mental status type: unspecified Qualified Code(s): R41.82 - Altered mental status, unspecified (6) COPD (chronic obstructive pulmonary disease) Current Visit: Yes Status: Chronic Assessment and plan: stable not in exacerbation cont home regimen Qualifiers: COPD type: unspecified COPD Qualified Code(s): J44.9 - Chronic obstructive pulmonary disease, unspecified (7) DVT prophylaxis Current Visit: Yes Status: Acute Assessment and plan: on SQ Heparin - Subjective Interval history: Ms. Mckoy is a 66 year old female With h/o COPD and h/o prior back surgeries, with last surgery - thoracolumbar laminectomy done 1 month ago in [place] by Dr. Hemant Jones . Pt did see him as f/u appt 3 days ago, at that she happened to have some cellulitis and infection of surgical site with pus drainage. Dr. Jones placed her ON PO Keflex and sent her home. Apparently from last 2 days she started having more sanguinous discharge coming through , as well as more swelling and erythema around the incision site noticed. Pt is resting comfortably now. Stated her pain is better today, however last 2 days prior to this admission she had unbearable pain. No CP / SOB - Constitutional Vitals: Temp Pulse Resp BP Pulse Ox 98.7 F 83 16 104/61 93 02/21/17 11:10 02/21/17 11:10 02/21/17 11:10 02/21/17 11:10 02/21/17 11:10 General appearance: Present: A&O X 3, no acute distress - Respiratory Respiratory exam: Present: CTAB. Absent: accessory muscle use, rales, rhonchi, wheezes - Cardiovascular Cardiovascular exam: Present: RRR, +S1, +S2. Absent: diastolic murmur, gallop, rubs, systolic murmur - GI/Abdominal GI/Abdominal exam: Present: normal bowel sounds, soft. Absent: distended, guarding, rebound, tenderness - Extremities Exam Extremities exam: Present: full ROM. Absent: calf tenderness, pedal edema, tenderness - Back Exam Additional comments: a small 0.5 m size open wound with very minimal sanguineous drainage at lower thoracic spine region. No erythema / swelling noticed. Internal Medicine: Result - Labs CBC & Chem 7: 02/21/17 03:47 02/21/17 03:47 Labs: Short CBC 02/21/17 Range/Units 03:47 WBC 5.7 (4.3-11.1) K/mcL Hgb 10.2 L (11.5-15.4) g/dL Hct 32.7 L (35.3-44.9) % Plt Count 426 H (140-400) K/mcL Neutrophils # 3.1 (1.6-8.9) K/mcL BMP 02/21/17 03:47 Sodium 138 Potassium 3.8 Chloride 107 Carbon Dioxide 24 BUN 6 L Creatinine 0.60 Glucose 100 H Calcium 8.5 L - ABG Interpretation ABG results: PT/INR, D-dimer PT 14.0 Seconds (9.4-12.1) H 02/19/17 16:48 - Impressions Impressions Abdomen Ultrasound 02/20/17 09:00 IMPRESSION: Phlegmonous collection in the area of concern within the midline with apparent sinus tract to the skin surface. There is no well-formed abscess at this time however the clinical history supports this is an infected fluid collection. D/ / 02/20/2017 10:37:38 Sukh Cueva MD / prudencio Interpreting Provider: Sukh Cueva MD Consult Discharge Plan - Plan Referrals: Michelle Kearns, JUNI [Primary Care Provider] -
[2017-02-21] MEDS: *HR* LORazepam 1 MG TABLET PO PRN (21:03)
[2017-02-21] MEDS: traZODone 50 MG TABLET PO SCH (21:04)
[2017-02-22] MEDS: Ipratropium/Albuterol Neb 3 ML IH SCH ×4 (04:35→22:30)
[2017-02-22 05:38] LABS: Basophils % 0.5 %; Eosinophils # 0.4 K/mcL (0.0-0.6); Eosinophils % 5.8 %; Hematocrit 31.1 % (35.3-44.9); Hemoglobin 10.1 g/dL (11.5-15.4); Immature Granulocytes % 0.2 % (0-4); Lymphocytes # 1.9 K/mcL (0.6-4.6); Lymphocytes % 29.5 %; Mean Corpuscular HGB Conc 32.5 g/dL (31.6-35.5); Mean Corpuscular Hemoglobin 29.2 pg (28.0-33.3); Mean Corpuscular Volume 89.9 fL (83.0-100.0); Mean Platelet Volume 8.7 fL (9.4-12.4); Monocytes # 0.5 K/mcL (0.0-1.3); Monocytes % 8.1 %; Neutrophils # 3.6 K/mcL (1.6-8.9); Platelet Count 429 K/mcL (140-400); Red Blood Count 3.46 M/mcL (3.82-4.97); Red Cell Distribution Width 13.6 % (11.5-14.5); Segmented Neutrophils % 55.9 %
[2017-02-22] MEDS: Vancomycin 1,000 MG in D5% in Water 250 ML IVPB SCH (06:07)
[2017-02-22] MEDS: *HR* Heparin 5,000 UNIT/ML VIAL SQ SCH ×3 (06:07→21:17)
--- NOTE | 2017-02-22 06:46 | Electrocardiograph Report ---
[address] [address] Test Date: 2017-02-19 Pat Name: Yeny Mckoy Department: 104 Room: [facility] Gender: F Special Agent: CHARITY : 1950 Requested By: Jame Sim Order Number: [id number] Reading MD: Ramsey Triana MD Measurements Intervals [place] Rate: 99 P: 47 MN: 139 QRS: 8 QRSD: 97 T: 58 QT: 352 QTc: 408 Interpretive Statements SINUS RHYTHM LOW QRS VOLTAGE IN PRECORDIAL LEADS Poor R wave progression Electronically Signed On 02-22-2017 6:44:47 EDT by Ramsey Triana MD
[2017-02-22] MEDS: Lactobacillus 1 EACH CAP.SPRINK PO SCH (08:00)
[2017-02-22] MEDS: Gabapentin 300 MG CAPSULE PO SCH ×3 (08:00→21:17)
[2017-02-22] MEDS: Cholecalciferol (D-3) 1,000 UNIT TABLET PO SCH (08:00)
[2017-02-22] MEDS: Fluticasone Propionate Nasal 50 MCG/SPRAY BOTTLE NS SCH ×2 (08:01→21:18)
[2017-02-22] MEDS: *HR* OxyCODONE/APAP 5/325 TABLET PO PRN ×3 (08:03→22:58)
[2017-02-22] MEDS: Budesonide/Formoterol 80/4.5 MDI IH SCH ×2 (10:53→22:30)
[2017-02-22] MEDS ORDERED: Lidocaine -MPF 1% 5 ML AMPUL INFILT ONE (12:50)
--- NOTE | 2017-02-22 14:04 | Infectious Disease Consult ---
Date of Encounter: 02/22/17 Time of Encounter: 14:03 Assessment and Plan (1) Sepsis Status: Acute Assessment and plan: Patient met sepsis criteria on admission with leukocytosis, fever, and tachycardia. Source is likely infected surgical site. Blood cultures from 02/19/17 show NGTD. Wound cultures from 02/19/17 have grown MSSA. Recommendations: Discontinue vancomycin Begin Cefazolin IV 2G Q8H Begin rifampin until it can be determined whether or not there is hardware involvement. Close follow up with patients surgeon. continue to monitor from drug toxicities. continue to monitor renal function. Qualifiers: Sepsis type: methicillin susceptible Staphylococcus aureus Qualified Code(s ): A41.01 - Sepsis due to Methicillin susceptible Staphylococcus aureus (2) Surgical site infection Status: Acute Assessment and plan: patient is s/p thoracolumbar lamenectomy done one month prior by Dr. Valadez in [place]. Now with purulent drainage, fever and leukocytosis. CT imaging of the spine from 02/19/17 is of poor quality secondary to hardware and inconclusive. US did reveal that the area of concern at the midline of the back demonstrates a heterogeneous poorly demarcated fluid collection measuring 4.8 x 1.9 cm. additionally. appears to have a sinus tract to the surface. Attempted to discuss findings with radiology, however they are currently unavailable. She has had elevated ESR and CRP which have trended down since admission. Unclear at this time wether or not there is involvement with the hardware. we will discuss with radiology in the AM. Recommend discontinuing Vancomycin Recommend Cefazolin 2G IV Q8H. Recommend Rifampin until it can be determined whether or not there is involvement of the hardware. Recommend close follow up with her surgeon as well. She will likely need drainage of the abscess for source control. Duration of antibiotics will depend on clinical course. I have discussed the above with the hospitalist ( Dr. Boyd) Thank you for the consultation and the opportunity to participate in this patients care. Qualifiers: Encounter type: initial encounter Qualified Code(s): T81.4XXA - Infection following a procedure, initial encounter Infectious Disease HPI - Data of Consult Requesting Physician: Jarrod Boyd MD Primary Care Provider: Michelle Kearns CNP - Consult Narrative Reason for consult: Sepis/ recommendations for IV antibiotics. History of present illness: Ms. Mckoy is a 66 year old female who was admitted to the [facility] on 02/19/2017 for sepsis. Infectious diseases consult noted on 02/22/2017 for recommendations for IV antibiotics. MRS Mckoy is a 66 y.o. female with pmh of multiple back injuries and surgeries. She states that she has had 4 prior back surgeries before her most recent laminectomy in [place]. she states that her first surgery was in 2003. Today: She states that she was at a follow up appointment for suture removal on 02/18/17 when it was noted that she had some purulent drainage from her incision. She was started on Keflex at that time ( she is unaware of the dose). She states that the drainage from her back became copious. she had some confusion at home as well and was brought to the ER by her friend. She denies any fever or chills. However she states she had malaise 3-4 days prior to her episode of confusion. she admits to some drainage for the surgical site that is purulent. She denies any leg weakness. No increased difficulty walking. No bowel or bladder incontinence. She states she has a cough but that this is chronic and that [facility] has had it for nearly a year and it is secondary to allergies. she denies any productuve cough, denies dysuria, diarrhea, and abdominal pain. She has no further complaints or concerns at this time. CC: Jarrod Boyd MD Past Med Surg Social Fam HX - Past Medical History Medical history: arthritis, COPD Psychiatric history: anxiety, depression, PTSD - Past Surgical History Surgical History: cholecystectomy, other - Social History Smoking Status: Former smoker Smokeless Tobacco Status: No Alcohol use: none Drug use: none - Family History Father Name: VERN DUFF Living Status: Age at : 73 Cause of : TRAMA Hx Family Cardiac Disorders: Yes Infectious Disease-CN:Meds Acetaminophen [Tylenol] 500 mg PO Q6H PRN 02/19/17 [History] Albuterol Sulfate [Ventolin Hfa] 2 puff IH Q4H PRN 02/19/17 [History] Alendronate Sodium [Fosamax] 70 mg PO QWEEK 02/19/17 [History] Antiox #11/Om3/Dha/Epa/Lut/Jasen [Eye Health Adult 50+ Softgel] 1 each PO BID [History] Cholecalciferol (D-3) [Vitamin D] 1,000 unit PO DAILY 02/19/17 [History] Cyclobenzaprine [Flexeril] 10 mg PO TID PRN 02/19/17 [History] DULoxetine [Cymbalta] 30 mg PO DAILY 02/19/17 [History] Fluticasone Propionate Nasal [Flonase] 50 mcg NS BID 02/19/17 [History] Fluticasone/Salmeterol [Advair Hfa 230-21 Mcg Inhaler] 2 puff IH BID 02/19/17 [ History] Gabapentin [Neurontin] 600 mg PO TID 02/19/17 [History] L. Acidophilus/Pectin, [place] [Acidophilus Probiotic Capsule] 1 each PO DAILY [History] LORazepam [Ativan] 1 mg PO TID PRN 02/19/17 [History] Meloxicam [Mobic] 15 mg PO DAILY 02/19/17 [History] Montelukast [Singulair] 10 mg PO HS 02/19/17 [History] OxyCODONE/APAP 5/325 [Percocet 5/325 MG] 1 each PO Q6HR PRN 02/19/17 [History] Potassium Gluconate [Potassium] 99 mg PO DAILY 02/19/17 [History] Trazodone HCl 100 mg PO HS 02/19/17 [History] cephALEXin [Keflex] 500 mg PO QID 02/19/17 [History] Allergies Sulfa (Sulfonamide Antibiotics) Adverse Reaction (Verified 02/19/17 16:07) Rash Review of systems: Constitutional: As per history of present illness HEENT: Denies headache, denies sore throat, post nasal drip, nasal congestion, rhinnorhea, sinus pressure, hearing or vision changes, stiff neck Heart: Denies chest pain, palpitations, orthopnea Respiratory: Denies cough, wheeze, dyspnea, and hemoptysis GI: Denies N/V/D/C denies abdominal pain. : denies dysuria, hematuria, change in frequency of urination. MSK: denies new aches or paines. Neuro: denies focal motor or sensory defecits. Denies recent seizure activity. Lymph: denies swollen lymph nodes in the neck axilla or groin Travel: denies recent travel Animal exposure: denies Sick contacts: Denies. Dental: denies recent dental procedures Exam - Constitutional Vitals: Temp Pulse Resp BP Pulse Ox 97.8 F 86 18 135/71 93 02/22/17 11:30 02/22/17 11:30 02/22/17 11:30 02/22/17 11:30 02/22/17 11:30 Exam: Gen.: This is a well-developed well-nourished 66-year-old female who is alert and orientated to person place time and situation. Lying in bed appears to be comfortable and in no acute distress at this time. She appears to be in good spirits today. HEENT: There is no cephalic atraumatic. Pupils equally round react light and accommodation. Normal external appearance of ears eyes and eyes. She does have dentures that are in place. Moist mucous membranes. Tongue is midline. Trachea is midline. There is no cervical submandibular or supraclavicular lymphadenopathy palpable on exam. Heart: Regular rate and rhythm without murmurs rubsor Lungs: Clear to auscultation bilaterally. Normal effort of breathing. Abdomen: Soft, nondistended, nontender to palpation. Musculoskeletal: Grossly normal for age no gross deformity noted. Spine: The spine does have somewhat distorted anatomy. She has had multiple spine surgeries with the scars down the midline of her spine as well as a healing incision that appears to be nearly fully healed. I could not palpate any palpable abscess at this time. No erythema or warmth of the skin. Clinically unimpressive other than her prior surgeries. The back was well- dressed with very minimal purulent discharge on the dressing. Extremities: There is no clubbing, cyanosis or edema. Integument: No rashes or lesions noted on exam. Infectious Disease CN: Results - Labs CBC & Chem 7: 02/23/17 05:38 02/23/17 05:38 Consult Discharge Plan - Plan Referrals: Michelle Kearns CNP [Primary Care Provider] - - Attending Attestation I examined this patient and my medical decision-making was reviewed with the Resident Physician. I agree with the documented findings, disposition and treatment plan as described except to the extent set forth below. patient is a 66 year old female with past medical history mentioned below including multiple back surgeries since 2003 with hardware came in with back pain and signs of sepsis 4 weeks after the last surgery. Patient went to her spine surgeon to remove sutures and she had pus draining from the wound site. Patient was started on Keflex. Not sure if cultures were obtain. Patient apparently started having significant amount of drainage and confusion. No fevers, no chills. Since admission, patient was found to have Tmax 100.4, tachycardia and tachypnea. Pateints WBC was 12.1 with normal diff no bands. No lactic acidosis. ESR and CrP were elevated in the [address] on the spine was non conflusive and u/s revealed fluid collection 4.8x1.9 with a sinus tract likely an abscess. Cultures were sent and revealed MSSA from the wound, blood cultures no growth today. Patient was started on vancomycin and zosyn, I received a call on the patient on Wednesday and recommend they stop the zosyn since it was only GPC growing. At this point, the hard question to answer is if there is any hardware involvement. We called to speak with radiology and see how deep the abscess is and if they are concerned with proximity to the hardware but Dr. Cueva will be back tomorrow Am. d/c vancomycin and start cefazolin 2 grams iv q8hrs consider starting rifampin until confirmation of hardware involvement or not is established. Monitor labs and for drug toxicity Need to be seen by surgeon that did surgery . consider setting up appointment now .
[2017-02-22] MEDS: *HR* LORazepam 1 MG TABLET PO PRN (14:41)
--- NOTE | 2017-02-22 15:35 | Internal Med Progress Note ---
Date of Encounter: 02/22/17 Time of Encounter: 15:31 - Assessment and plan (1) Sepsis Current Visit: Yes Status: Resolved Assessment and plan: due to cellulites and surgical site ulcer over thoracic spine Improving wound cx growing - MSSA blood cx- no growth so far Qualifiers: Sepsis type: sepsis due to unspecified organism Qualified Code(s): A41.9 - Sepsis, unspecified organism (2) Cellulitis of mid back region Current Visit: Yes Status: Acute (3) Wound infection complicating hardware Current Visit: Yes Status: Acute Assessment and plan: Reviewed U/S of Thoracic spine - showed demonstrates a heterogeneous poorly demarcated fluid collection measuring 4.8 x 1.9 cm. This is suggestive of a phlegms collection and appears to extend to the skin surface. Concerned for possible hardware infection too since pt's ESR and CRP significantly elevated at 44, 114 now her ESR and CRP trending down her wound cx growing MSSA Blood cx - no growth in 48hrs Will consider to switch her abx to Oxacillin vs Keflex ID is on board y/d I did talk to Dr. Jones's ) [employer] Mr. Spence @ [phone] and U/S of spine findings At this point since her blood cx are not growing any bacteria , there is no need to go back to OR for any wash off and hardware infection also very less likely however given her extensive back surgeries with lot of hardware in it .. she does need halfway IV abx to prevent further hardware infection Qualifiers: Qualified Code(s): T84.7XXA - Infection and inflammatory reaction due to other internal orthopedic prosthetic devices, implants and grafts, initial encounter (4) S/P laminectomy Current Visit: Yes Status: Acute (5) Altered mental status Current Visit: Yes Status: Resolved Assessment and plan: due to sepsis resolved Qualifiers: Altered mental status type: unspecified Qualified Code(s): R41.82 - Altered mental status, unspecified (6) COPD (chronic obstructive pulmonary disease) Current Visit: Yes Status: Chronic Assessment and plan: stable not in exacerbation cont home regimen Qualifiers: COPD type: unspecified COPD Qualified Code(s): J44.9 - Chronic obstructive pulmonary disease, unspecified (7) DVT prophylaxis Current Visit: Yes Status: Acute Assessment and plan: on SQ Heparin - Subjective Interval history: Ms. Mckoy is a 66 year old female With h/o COPD and h/o prior back surgeries, with last surgery - thoracolumbar laminectomy done 1 month ago in [place] by Dr. Hemant Jones . Pt did see him as f/u appt 3 days ago, at that she happened to have some cellulitis and infection of surgical site with pus drainage. Dr. Jones placed her ON PO Keflex and sent her home. Apparently from last 2 days she started having more sanguinous discharge coming through , as well as more swelling and erythema around the incision site noticed. Pt is resting comfortably now. Stated her pain is better today, however last 2 days prior to this admission she had unbearable pain. No CP / SOB. No events over night - Constitutional Vitals: Temp Pulse Resp BP Pulse Ox 99.4 F 86 18 147/95 97 02/22/17 15:29 02/22/17 15:29 02/22/17 15:29 02/22/17 15:29 02/22/17 15:29 General appearance: Present: A&O X 3, no acute distress - Respiratory Respiratory exam: Present: CTAB. Absent: accessory muscle use, rales, rhonchi, wheezes - Cardiovascular Cardiovascular exam: Present: RRR, +S1, +S2. Absent: diastolic murmur, gallop, rubs, systolic murmur - GI/Abdominal GI/Abdominal exam: Present: normal bowel sounds, soft. Absent: distended, firm , guarding, tenderness - Extremities Exam Extremities exam: Absent: calf tenderness, pedal edema, tenderness - Back Exam Back exam: Absent: CVA tenderness (L), CVA tenderness (R) Additional comments: small 0.5 cm size open area in the middle of recent surgical site. No erythema, no tenderness, no swelling noticed.. very minimal discharge noticed - Neurological Exam Neurological exam: Present: alert, oriented X3, reflexes normal Internal Medicine: Result - Labs CBC & Chem 7: 02/22/17 04:37 02/21/17 03:47 Labs: Short CBC 02/22/17 Range/Units 04:37 WBC 6.5 (4.3-11.1) K/mcL Hgb 10.1 L (11.5-15.4) g/dL Hct 31.1 L (35.3-44.9) % Plt Count 429 H (140-400) K/mcL Neutrophils # 3.6 (1.6-8.9) K/mcL - ABG Interpretation ABG results: PT/INR, D-dimer PT 14.0 Seconds (9.4-12.1) H 02/19/17 16:48 Consult Discharge Plan - Plan Referrals: Michelle Kearns, [employer] [Primary Care Provider] -
[2017-02-22] MEDS: ceFAZolin 2,000 MG in D5% in Water 100 ML IVPB SCH (18:04)
[2017-02-22] MEDS: traZODone 50 MG TABLET PO SCH (21:16)
[2017-02-23] MEDS: ceFAZolin 2,000 MG in D5% in Water 100 ML IVPB SCH ×3 (01:24→18:04)
[2017-02-23] MEDS: Ipratropium/Albuterol Neb 3 ML IH SCH ×4 (04:32→21:46)
[2017-02-23] MEDS: *HR* Heparin 5,000 UNIT/ML VIAL SQ SCH ×3 (05:07→21:19)
[2017-02-23 05:59] LABS: Basophils % 0.6 %; Eosinophils # 0.4 K/mcL (0.0-0.6); Eosinophils % 5.2 %; Hematocrit 30.1 % (35.3-44.9); Hemoglobin 9.7 g/dL (11.5-15.4); Immature Granulocytes % 0.1 % (0-4); Lymphocytes # 2.1 K/mcL (0.6-4.6); Lymphocytes % 29.7 %; Mean Corpuscular HGB Conc 32.2 g/dL (31.6-35.5); Mean Corpuscular Hemoglobin 28.9 pg (28.0-33.3); Mean Corpuscular Volume 89.6 fL (83.0-100.0); Mean Platelet Volume 8.3 fL (9.4-12.4); Monocytes # 0.7 K/mcL (0.0-1.3); Monocytes % 9.9 %; Neutrophils # 3.9 K/mcL (1.6-8.9); Platelet Count 410 K/mcL (140-400); Red Blood Count 3.36 M/mcL (3.82-4.97); Red Cell Distribution Width 13.7 % (11.5-14.5); Segmented Neutrophils % 54.5 %
[2017-02-23 06:14] LABS: Vancomycin,Trough 6.8 mcg/mL (10-20)
--- NOTE | 2017-02-23 08:27 | Infectious Disease Progress No ---
Date of Encounter: 02/23/17 Time of Encounter: 08:25 - Assessment and Plan (1) Sepsis Current Visit: Yes Status: Acute Patient no longer meets SIRS criteria. Tmax of 99.4 blood cultures from 02/19/17 show NGTD. Wound cultures from the spine have grown MSSA. source is most likley secondary to her surgical site infection. Recommendations: Cefazolin 2grams IV Q8H for at least 2 weeks. Rifampin 300mg PO BID. Follow up appointment scheduled with Dr. Ríos on 03/09/17 at 1:00 PM. Please ensure she is still on IV antibiotics at this appointment. Recommend an appointment with her spinal surgeon as soon as possible. Patient already has PICC line placed this AM for IV access. Recommend weekly CBC, BMP, ESR, CRP. I discussed the above plan with the patient, primary team attending, and residents. Qualifiers: Sepsis type: methicillin susceptible Staphylococcus aureus Qualified Code(s ): A41.01 - Sepsis due to Methicillin susceptible Staphylococcus aureus (2) Surgical site infection Current Visit: Yes Status: Acute I called and discussed imaging with Dr. Cueva in Radiology this AM. He stated he could no comment on whether it appeared that the hardware was infected on US due to the nature of the study as well as inteference from the hardware. Additionally he stated there were no obvious signs of infection such as loosening of the hardware but that he could not rule this out. She is high risk given her multiple surgeries adn extensive hardware of the spine. Recommendations. Cefazolin 2grams IV Q8H for at least 2 weeks. Rifampin 300mg PO BID. Follow up appointment scheduled with Dr. Ríos on 03/09/17 at 1:00 PM. Please ensure she is still on IV antibiotics at this appointment. Recommend an appointment with her spinal surgeon as soon as possible. Patient already has PICC line placed this AM for IV access. Recommend weekly CBC, BMP, ESR, CRP. I discussed the above plan with the patient, primary team attending, and residents. Qualifiers: Encounter type: initial encounter Qualified Code(s): T81.4XXA - Infection following a procedure, initial encounter (3) Altered mental status Current Visit: Yes Status: Resolved likely related to her sepsis. resolved. Qualifiers: Altered mental status type: unspecified Qualified Code(s): R41.82 - Altered mental status, unspecified (4) S/P laminectomy Current Visit: Yes Status: Acute patient lamenectomy of the thoracolumbar spine in [place] by Dr. Valadez approximately one month ago. - Subjective Interval history: Events overnight. The patient states that she is feeling better today and feels like she has more strength. She denies any fever chills malaise cough, dysuria. She denies any rash or diarrhea. She denies any increased back pain or drainage from her surgical site. She has no further complaints or concerns at this time. Infect Dis PN-Objective Data - Labs CBC & Chem 7: 02/23/17 05:38 02/23/17 05:38 Labs: Laboratory Results - last 24 hr 02/23/17 02/23/17 05:38 05:38 WBC 7.1 RBC 3.36 L Hgb 9.7 L Hct 30.1 L MCV 89.6 MCH 28.9 MCHC 32.2 RDW 13.7 Plt Count 410 H MPV 8.3 L Immature Gran % 0.1 Seg Neutrophils % 54.5 Lymphocytes % 29.7 Monocytes % 9.9 Eosinophils % 5.2 Basophils % 0.6 Neutrophils # 3.9 Lymphocytes # 2.1 Monocytes # 0.7 Eosinophils # 0.4 Basophils # 0.0 Vancomycin Trough 6.8 L Exam - Constitutional Vitals: Temp Pulse Resp BP Pulse Ox 98.2 F 86 18 107/67 93 02/23/17 06:48 02/23/17 06:48 02/23/17 06:48 02/23/17 06:48 02/23/17 06:48 Exam: Gen.: This is a well-developed well-nourished 66-year-old female she sitting in a chair at the bedside eating breakfast appears to be comfortable in no acute distress at this time. HEENT: Head is cephalic atraumatic. Pupils equally round reactive light. Normal external appearance of the nose and eyes. Moist mucous membranes. She does have dentures. Trachea is midline. heart: Regular rate and rhythm without murmur or gallops. No JVD. Lungs: Normal effort of breathing clear auscultation bilaterally. Musculoskeletal: Grossly normal for age no gross deformity noted. Spine: She does have postsurgical changes notable with palpation. She has the same dressing from yesterday is still clean and dry without any shadowing. Extremities: There is no clubbing, cyanosis or edema. Integument: Is no rashes or lesions noted on exam. Consult Discharge Plan - Plan Additional Instructions: Continue IV Cefzil and 2 g every 8 hours for an additional 14 days Continue rifampin 300 mg twice a day for additional 14 days Follow-up with your back surgeon as soon as possible, as emergent evaluation for thoracic hardware Follow-up with her PCP in 1-2 weeks Return to emergency room if redevelopment of symptoms, development of fever/ chills, new pain in your thoracic spine, development of chest pain or shortness of breath. Referrals: Hemant Jones DO [Non-Partnered Physician] - 03/02/17 8:45 am Michelle Kearns CNP [Primary Care Provider] - Prescriptions: ceFAZolin [Ancef] 2,000 mg IVPB Q8HR 14 Days rifAMPin [Rifadin] 300 mg PO BIDAC 14 Days - Attending Attestation I examined this patient and my medical decision-making was reviewed with the Resident Physician. I agree with the documented findings, disposition and treatment plan as described except to the extent set forth below. Patient scheduled to see her ortho/spine surgeon on 03/02. follow up in clinic in 2 weeks.
[2017-02-23] MEDS: Lactobacillus 1 EACH CAP.SPRINK PO SCH (08:55)
[2017-02-23] MEDS: Cholecalciferol (D-3) 1,000 UNIT TABLET PO SCH (08:55)
[2017-02-23] MEDS: Gabapentin 300 MG CAPSULE PO SCH ×3 (08:55→21:20)
[2017-02-23] MEDS: Fluticasone Propionate Nasal 50 MCG/SPRAY BOTTLE NS SCH ×2 (08:56→21:20)
[2017-02-23] MEDS: *HR* OxyCODONE/APAP 5/325 TABLET PO PRN ×2 (08:57→18:04)
[2017-02-23 09:13] LABS: BUN/Creatinine Ratio 8 (6-26); Blood Urea Nitrogen 5 mg/dL (7-20); Calcium 8.6 mg/dL (8.6-10.8); Carbon Dioxide 26 mEq/L (19-29); Chloride 107 mEq/L (98-109); Glucose 111 mg/dL (70-99); Osmolality,Calculated 286 (280-300); Potassium 3.3 mEq/L (3.5-4.5); Sodium 139 mEq/L (136-145); eGFR For African Americans > 60 (> 60); eGFR For Non-African Americans > 60 (> 60)
[2017-02-23] MEDS ORDERED: Aminoglycoside Consult 1 EACH MC ONE (09:16)
[2017-02-23] MEDS: Budesonide/Formoterol 80/4.5 MDI IH SCH ×2 (10:55→21:46)
[2017-02-23] MEDS: rifAMPin 150 MG CAPSULE PO SCH ×2 (11:05→16:03)
--- NOTE | 2017-02-23 14:21 | Discharge Summary ---
<Kwesi Banda - Last Filed: 02/23/17 17:09> Date of Encounter: 02/23/17 Time of Encounter: 09:55 - Discharge Diagnosis (1) Sepsis Priority: Primary Status: Resolved Qualifiers: Sepsis type: sepsis due to unspecified organism Qualified Code(s): A41.9 - Sepsis, unspecified organism (2) Cellulitis of mid back region Priority: Primary Status: Acute (3) Wound infection complicating hardware Priority: Primary Status: Acute Qualifiers: Encounter type: initial encounter Qualified Code(s): T84.7XXA - Infection and inflammatory reaction due to other internal orthopedic prosthetic devices, implants and grafts, initial encounter (4) Altered mental status Priority: Primary Status: Resolved Qualifiers: Altered mental status type: unspecified Qualified Code(s): R41.82 - Altered mental status, unspecified (5) COPD (chronic obstructive pulmonary disease) Priority: Primary Status: Chronic Qualifiers: COPD type: unspecified COPD Qualified Code(s): J44.9 - Chronic obstructive pulmonary disease, unspecified (6) S/P laminectomy Priority: Primary Status: Acute (7) DVT prophylaxis Priority: Secondary Status: Acute - Discharge Medications Prescriptions: ceFAZolin [Ancef] 2,000 mg IVPB Q8HR 14 Days rifAMPin [Rifadin] 300 mg PO BIDAC 14 Days Home Medications: Albuterol Sulfate [Ventolin Hfa] 2 puff IH Q4H PRN 02/19/17 [History] Alendronate Sodium [Fosamax] 70 mg PO QWEEK 02/19/17 [History] Antiox #11/Om3/Dha/Epa/Lut/Jasen [Eye Health Adult 50+ Softgel] 1 each PO BID [History] Cholecalciferol (D-3) [Vitamin D] 1,000 unit PO DAILY 02/19/17 [History] Cyclobenzaprine [Flexeril] 10 mg PO TID PRN 02/19/17 [History] DULoxetine [Cymbalta] 30 mg PO DAILY 02/19/17 [History] Fluticasone Propionate Nasal [Flonase] 50 mcg NS BID 02/19/17 [History] Fluticasone/Salmeterol [Advair Hfa 230-21 Mcg Inhaler] 2 puff IH BID 02/19/17 [ History] Gabapentin [Neurontin] 600 mg PO TID 02/19/17 [History] L. Acidophilus/Pectin, [place] [Acidophilus Probiotic Capsule] 1 each PO DAILY [History] LORazepam [Ativan] 1 mg PO TID PRN 02/19/17 [History] Meloxicam [Mobic] 15 mg PO DAILY 02/19/17 [History] Montelukast [Singulair] 10 mg PO HS 02/19/17 [History] OxyCODONE/APAP 5/325 [Percocet 5/325 MG] 1 each PO Q6HR PRN 02/19/17 [History] Potassium Gluconate [Potassium] 99 mg PO DAILY 02/19/17 [History] Trazodone HCl 100 mg PO HS 02/19/17 [History] Acetaminophen [Tylenol] 650 mg PO Q6HR PRN tab 02/23/17 [Rx] Docusate [Colace] 100 mg PO BID PRN 02/23/17 [Rx] ceFAZolin [Ancef] 2,000 mg IVPB Q8HR 14 Days 02/23/17 [Rx] rifAMPin [Rifadin] 300 mg PO BIDAC 14 Days 02/23/17 [Rx] Allergies/Adverse Reactions: Allergies Sulfa (Sulfonamide Antibiotics) Adverse Reaction (Verified 02/19/17 16:07) Rash Date of admission: 02/19/17 21:43 Primary care physician: Michelle Kearns CNP Consults: 02/22/17 12:36 Consult to Infectious Diseases [CONS] Routine Consulting Provider: Infectious Disease Kiki Reason for Consult: iv antibiotics Call Completed: Yes 02/22/17 12:50 Consult to Invasive Line Access Team [CONS] Routine Reason for Consult: Picc Line Insertion Line Type: PICC PICC line indications: adjunct faculty for medical terminology Med/Antibiotic Call Completed: Yes 02/22/17 13:05 Consult to Occupational Therapy [CONS] Stat Comment: Evaluate, develop and implement POC Reason for Consult: physical deconditioning Consult to Physical Therapy [CONS] Stat Comment: Evaluate, develop and implement POC Reason for Consult: Physical deconditioning Consult to Business Law Instructor [CONS] Stat Reason for SW Consult: physical deconditioning Discharging clinician: Kwesi Banda Anticipated date of discharge: 02/24/17 - Patient Status Disposition: Home Health Service Condition: Fair Functional capacity at discharge: independent ambulation Overall status at discharge: patient is progressing back to baseline - Discharge Instructions Follow Up With: Hemant Jones DO [Non-Partnered Physician] - 03/02/17 8:45 am Michelle Kearns CNP [Primary Care Provider] - Forms: ED Satisfaction Letter Additional Instructions: Continue IV Cefzil and 2 g every 8 hours for an additional 14 days Continue rifampin 300 mg twice a day for additional 14 days Follow-up with your back surgeon as soon as possible, as emergent evaluation for thoracic hardware Follow-up with her PCP in 1-2 weeks Return to emergency room if redevelopment of symptoms, development of fever/ chills, new pain in your thoracic spine, development of chest pain or shortness of breath. - Diet and Activity Activity: increase activity as tolerated Diet: advance to your usual diet Interval History: Patient reports that she is feeling well today. She continues to have tenderness in the middle of her back, but denies having any fevers/chills, nausea/vomiting, chest pain, shortness of breath. Hospital course: Ms. Mckoy is a 66 year old female with prior medical history of arthritis, COPD , and recent laminectomy approximately one month ago. Some swelling and pus was observed in 1 month follow-up and she started a course of Keflex. She was having some concerning symptoms at home, 2 days later she came to [facility]. She was initially started on vancomycin and Zosyn after initial evaluation of her back in the emergency department. An ultrasound of thoracic spine was obtained that showed a heterogeneous poorly demarcated fluid collection that was 4.8 x 1.9 cm, suggesting phelgmonous collection extending to the skin surface. She also had elevated ESR and CRP were 44 114 respectively. Initial wound cultures grew gram-positive cocci and she was continued on empiric antibiotics. Her surgeon Dr. Jones was contacted regarding his thoughts on her possible hardware infection. Blood cultures finalized with no growth, so did not appear she had a hardware infection. Infectious disease was consulted for assistance in managing her antibiotics and she was placed on Cefzil and and rifampin. The patient improved markedly and this time and is reporting no concerns/ complaints after the continuation of IV antibiotics. Does recommended that she continue her course of Cefzil and rifampin for an additional 2 weeks to clear her infection. Also been recommended to follow-up with her surgeon as soon as possible in order to further evaluate potential hardware infection. As of this time she is safe/stable for discharge after establishment of either home health or [place] [facility] facility in order to continue IV infusions of antibiotics for additional 2 weeks. - Time Spent with Patient Total time spent providing and/or coordinating discharge services: - Constitutional Vitals: Temp Pulse Resp BP Pulse Ox 98.0 F 80 99 136/76 95 02/23/17 11:03 02/23/17 11:03 02/23/17 11:03 02/23/17 11:03 02/23/17 10:55 General appearance: Present: A&O X 3, no acute distress Exam: General: Cooperative, pleasant, no acute distress, alert and oriented 3, answers questions appropriately HEENT: Normocephalic, atraumatic, Conjunctiva pink, sclera anicteric, oral mucosa moist Respiratory: No accessory muscle usage, clear to auscultation bilaterally, no wheezes/rhonchi/rales appreciated Cardiovascular: Regular rate and rhythm, S1 and S2 present, no murmurs/rubs/ gallops/clicks appreciated GI/abdominal: Nondistended, nontender, soft, normal bowel sounds, no peritoneal signs Extremities: No calf tenderness, noncyanotic, no pedal edema appreciated, warm, lower extremity pulses palpable and symmetrical Spine: Postsurgical changes apparent, dressing partially removed in order to fully visualize, no drainage apparent Neurological: Alert and oriented 3, no facial droop, no focal deficits Skin: Dry, intact, normal color <Clement Juarez P - Last Filed: 02/23/17 20:20> Date of Encounter: 02/23/17 Date of admission: 02/19/17 21:43 Primary care physician: Michelle Kearns CNP Consults: 02/22/17 12:36 Consult to Infectious Diseases [CONS] Routine Consulting Provider: Infectious Disease Kiki Reason for Consult: iv antibiotics Call Completed: Yes 02/22/17 12:50 Consult to Invasive Line Access Team [CONS] Routine Reason for Consult: Picc Line Insertion Line Type: PICC PICC line indications: correction Med/Antibiotic Call Completed: Yes 02/22/17 13:05 Consult to Occupational Therapy [CONS] Stat Comment: Evaluate, develop and implement POC Reason for Consult: physical deconditioning Consult to Physical Therapy [CONS] Stat Comment: Evaluate, develop and implement POC Reason for Consult: Physical deconditioning Consult to Business Law Instructor [CONS] Stat Reason for SW Consult: physical deconditioning Hospital course: Ms. Mckoy is a 66 year old female - Time Spent with Patient Total time spent providing and/or coordinating discharge services: - Constitutional Vitals: Temp Pulse Resp BP Pulse Ox 98.6 F 94 18 139/75 90 02/23/17 15:01 02/23/17 15:01 02/23/17 17:23 02/23/17 15:01 02/23/17 17:23 - Attending Attestation I examined this patient and my medical decision-making was reviewed with the Resident Physician. I agree with the documented findings, disposition and treatment plan as described except to the extent set forth below.
[2017-02-23] MEDS: *HR* LORazepam 1 MG TABLET PO PRN (16:03)
--- NOTE | 2017-02-23 17:15 | Physician Discharge Referral ---
<Kwesi Banda - Last Filed: 02/23/17 17:13> Home Health/Hosp Referral Info Transfer to: Home Health Provider in Charge Post Discharge: PCP - Diagnosis (1) Sepsis Priority: Primary Status: Resolved (2) Cellulitis of mid back region Priority: Primary Status: Acute (3) Wound infection complicating hardware Priority: Primary Status: Acute (4) Altered mental status Priority: Primary Status: Resolved (5) COPD (chronic obstructive pulmonary disease) Priority: Primary Status: Chronic (6) S/P laminectomy Priority: Primary Status: Acute (7) DVT prophylaxis Priority: Secondary Status: Acute - Respiratory Orders Smoking Cessation: Smoking cessation has been advised. For more information, call the [place] Tobacco Quit Line at 1-108-QAYX-NOW. - Diet/Nutrition Diet/Nutrition Orders: Regular - Activity Activity Orders: Up ad eloise - Services Needed Following services are medically necessary services: Home Infusion Home Care Orders: Need for 2g Cefazolin infusion Q8hr - Transfer Medications Prescriptions: ceFAZolin [Ancef] 2,000 mg IVPB Q8HR 14 Days rifAMPin [Rifadin] 300 mg PO BIDAC 14 Days Home Medications: Albuterol Sulfate [Ventolin Hfa] 2 puff IH Q4H PRN 02/19/17 [History] Alendronate Sodium [Fosamax] 70 mg PO QWEEK 02/19/17 [History] Antiox #11/Om3/Dha/Epa/Lut/Jasen [Eye Health Adult 50+ Softgel] 1 each PO BID [History] Cholecalciferol (D-3) [Vitamin D] 1,000 unit PO DAILY 02/19/17 [History] Cyclobenzaprine [Flexeril] 10 mg PO TID PRN 02/19/17 [History] DULoxetine [Cymbalta] 30 mg PO DAILY 02/19/17 [History] Fluticasone Propionate Nasal [Flonase] 50 mcg NS BID 02/19/17 [History] Fluticasone/Salmeterol [Advair Hfa 230-21 Mcg Inhaler] 2 puff IH BID 02/19/17 [ History] Gabapentin [Neurontin] 600 mg PO TID 02/19/17 [History] L. Acidophilus/Pectin, [place] [Acidophilus Probiotic Capsule] 1 each PO DAILY [History] LORazepam [Ativan] 1 mg PO TID PRN 02/19/17 [History] Meloxicam [Mobic] 15 mg PO DAILY 02/19/17 [History] Montelukast [Singulair] 10 mg PO HS 02/19/17 [History] OxyCODONE/APAP 5/325 [Percocet 5/325 MG] 1 each PO Q6HR PRN 02/19/17 [History] Potassium Gluconate [Potassium] 99 mg PO DAILY 02/19/17 [History] Trazodone HCl 100 mg PO HS 02/19/17 [History] Acetaminophen [Tylenol] 650 mg PO Q6HR PRN tab 02/23/17 [Rx] Docusate [Colace] 100 mg PO BID PRN 02/23/17 [Rx] ceFAZolin [Ancef] 2,000 mg IVPB Q8HR 14 Days 02/23/17 [Rx] rifAMPin [Rifadin] 300 mg PO BIDAC 14 Days 02/23/17 [Rx] Allergies/Adverse Reactions: Allergies Sulfa (Sulfonamide Antibiotics) Adverse Reaction (Verified 02/19/17 16:07) Rash Certification: Further, I certify that my clinical findings support that this patient is homebound (i.e. absences from home require considerable and taxing effort and are for medical reasons or orthodox services or infrequently or short duration when for other reasons) because: Homebound Reason: Patient requires assistance of a person or device to safely leave home Attestation: My signature below is to certify that this patient is under my care and that I, or nurse practitioner, or a physician's assistant chief nursing officer working with me, has a face-to -face encounter with this patient. <Clement Juarez P - Last Filed: 02/23/17 20:20> - Respiratory Orders Smoking Cessation: Smoking cessation has been advised. For more information, call the [place] Tobacco Quit Line at 5-468-DLKK-NOW. Certification: Further, I certify that my clinical findings support that this patient is homebound (i.e. absences from home require considerable and taxing effort and are for medical reasons or orthodox services or infrequently or short duration when for other reasons) because: Attestation: My signature below is to certify that this patient is under my care and that I, or nurse practitioner, or a physician's assistant chief nursing officer working with me, has a face-to -face encounter with this patient.
[2017-02-23] MEDS: traZODone 50 MG TABLET PO SCH (21:20)
[2017-02-24] MEDS: ceFAZolin 2,000 MG in D5% in Water 100 ML IVPB SCH ×2 (03:25→09:25)
[2017-02-24] MEDS: Ipratropium/Albuterol Neb 3 ML IH SCH ×2 (04:36→10:27)
[2017-02-24] MEDS: *HR* Heparin 5,000 UNIT/ML VIAL SQ SCH (06:08)
[2017-02-24] MEDS: rifAMPin 150 MG CAPSULE PO SCH (06:09)
[2017-02-24] MEDS: Lactobacillus 1 EACH CAP.SPRINK PO SCH (09:18)
[2017-02-24] MEDS: Gabapentin 300 MG CAPSULE PO SCH (09:18)
[2017-02-24] MEDS: Cholecalciferol (D-3) 1,000 UNIT TABLET PO SCH (09:18)
[2017-02-24] MEDS: *HR* LORazepam 1 MG TABLET PO PRN (09:18)
[2017-02-24] MEDS: Fluticasone Propionate Nasal 50 MCG/SPRAY BOTTLE NS SCH (09:19)
[2017-02-24] MEDS: *HR* OxyCODONE/APAP 5/325 TABLET PO PRN (09:26)
[2017-02-24] MEDS: Budesonide/Formoterol 80/4.5 MDI IH SCH (10:27)
[2017-02-24 10:50] VITALS: BP 124/85
== END 2017-02-24 11:58 | disposition home health service (06) | DRG 872 ==
LOC: EMEROO 15:56 → 3NENU 21:43
PROVIDERS: ADMIT Internal Medicine; ATTEND Family Medicine

== ENCOUNTER 2018-06-04 16:32 | Inpatient (IN) ==
--- NOTE | 2018-06-04 16:39 | Emergency Department Note ---
Disposition Clinical Impression: Dyspnea, Leukocytosis, Hyponatremia, Pneumonitis Disposition: Admitted As Inpatient Condition: Fair General Adult HPI - General Stated complaint: sob, ruq pain Time Seen by Provider: 06/04/18 16:37 - Related Data Home Medications Medication Instructions Recorded Confirmed RX: Cholecalciferol (D-3) [Vitamin 1,000 unit PO DAILY 02/19/17 06/02/18 D] RX: Gabapentin [Neurontin] 300 mg PO TID 02/19/17 06/02/18 RX: LORazepam [Ativan] 1 mg PO BID PRN 02/19/17 06/02/18 RX: Meloxicam [Mobic] 15 mg PO DAILY 02/19/17 06/02/18 Albuterol Sulfate [Proventil Hfa] 2 puff IH Q4H PRN 02/02/18 06/02/18 Benzonatate [Tessalon] 100 mg PO TID PRN 02/02/18 06/02/18 Duloxetine HCl [Cymbalta] 60 mg PO DAILY 02/02/18 06/02/18 Fluticasone/Salmeterol [Advair Hfa 2 puff IH BID 02/02/18 06/02/18 230-21 Mcg Inhaler] Multivitamin [One Daily Essential] 1 each PO DAILY 02/02/18 06/02/18 RX: Docusate [Colace] 100 mg PO DAILY 02/02/18 06/02/18 Potassium Chloride [Klor-Con M15] 99 meq PO DAILY 05/24/18 06/02/18 Benzonatate [Tessalon] 100 mg PO TID 06/02/18 06/02/18 RX: hydrOXYzine HCl [Hydroxyzine 25 mg PO TID 06/02/18 06/02/18 HCl] Previous Rx's Medication Instructions Recorded RX: Lidocaine/Prilocaine [Emla] 1 appl TP DAILY #30 gm 02/02/18 RX: Magic Mouthwash [Magic 10 ml PO QID PRN #240 ml 02/02/18 Mouthwash BLM] RX: Sucralfate [Carafate] 1 gm PO QIDAC #1 bottle 02/02/18 Dronabinol [Marinol] 5 mg PO BID 30 Days #60 capsule 03/02/18 RX: Mirtazapine [Remeron] 15 mg PO HS #30 tablet 03/23/18 RX: Promethazine [Phenergan] 25 mg PO Q6HR PRN #30 tablet 03/25/18 Ondansetron [Zofran] 8 mg PO Q8HR PRN #30 tablet 03/30/18 RX: OxyCODONE/APAP 10/325 1 each PO Q6HR PRN 30 Days #120 04/25/18 [Percocet 10/325 MG] tablet RX: Buspirone HCl [Buspar] 10 mg PO BID 30 Days #60 tablet 06/02/18 RX: Dexamethasone [Decadron] 2 mg PO BID 30 Days #30 tab 06/02/18 Allergies Allergy/AdvReac Type Severity Reaction Status Date / Time Sulfa (Sulfonamide AdvReac Rash Verified 02/19/17 16:07 Antibiotics) Past Medical History - Past Medical History Medical history: Reports: arthritis, cancer, COPD Surgical history: Reports: cholecystectomy, other Psychiatric history: Reports: anxiety, depression, PTSD 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 - Social History Smoking Status: Current every day smoker Smokeless Tobacco Status: No Alcohol use: Reports: none Drug use: Reports: none Course Vital Signs Temperature 98.2 F 06/04/18 16:38 Pulse Rate 102 06/04/18 16:38 Respiratory Rate 24 06/04/18 16:38 Blood Pressure 114/78 06/04/18 16:38 O2 Sat by Pulse Oximetry 94 06/04/18 16:38 Temperature 98.2 F 06/04/18 16:38 Pulse Rate 91 06/04/18 20:32 Respiratory Rate 23 06/04/18 20:32 Blood Pressure 127/99 06/04/18 20:32 O2 Sat by Pulse Oximetry 94 06/04/18 20:32 Oxygen Delivery Oxygen Delivery Oximizer Medical Decision Making - Lab Data Result diagrams: 06/04/18 17:23 06/04/18 17:23 Lab Results 06/04/18 06/04/18 06/04/18 Range/Units 17:23 17:23 17:23 WBC 33.3 H* D (4.3-11.1) K/mcL RBC 3.88 (3.82-4.97) M/mcL Hgb 11.5 (11.5-15.4) g/dL Hct 34.7 L (35.3-44.9) % MCV 89.4 (83.0-100.0) fL MCH 29.6 (28.0-33.3) pg MCHC 33.1 (31.6-35.5) g/dL RDW 19.0 H (11.5-14.5) % Plt Count 319 (140-400) K/mcL MPV 8.6 L (9.4-12.4) fL Immature Gran % 1.1 (0-4) % Seg Neutrophils % 93.5 % Lymphocytes % 0.9 % Monocytes % 4.3 % Eosinophils % 0.1 % Basophils % 0.1 % Neutrophils # 31.1 H (1.6-8.9) K/mcL Lymphocytes # 0.3 L (0.6-4.6) K/mcL Monocytes # 1.4 H (0.0-1.3) K/mcL Eosinophils # 0.0 (0.0-0.6) K/mcL Basophils # 0.0 (0.0-0.2) K/mcL Sodium 130 L (136-145) mEq/L Potassium 3.5 (3.5-5.1) mEq/L Chloride 96 L (98-107) mEq/L Carbon Dioxide 23 (23-29) mEq/L BUN 24 H (8-23) mg/dL Creatinine 0.64 (0.60-1.20) mg/dL Est GFR ( Amer) > 60 (> 60) Est GFR (Non-Af Amer) > 60 (> 60) BUN/Creatinine Ratio 38 H (6-26) Glucose 107 H (70-105) mg/dL Calculated Osmolality 275 L (280-300) Lactic Acid 1.5 (0.5-2.2) mmol/L Calcium 8.9 (8.6-10.3) mg/dL Troponin I < 0.03 (< 0.04) ng/mL B-Natriuretic Peptide (Less than 100) pg/mL 06/04/18 Range/Units 17:23 WBC (4.3-11.1) K/mcL RBC (3.82-4.97) M/mcL Hgb (11.5-15.4) g/dL Hct (35.3-44.9) % MCV (83.0-100.0) fL MCH (28.0-33.3) pg MCHC (31.6-35.5) g/dL RDW (11.5-14.5) % Plt Count (140-400) K/mcL MPV (9.4-12.4) fL Immature Gran % (0-4) % Seg Neutrophils % % Lymphocytes % % Monocytes % % Eosinophils % % Basophils % % Neutrophils # (1.6-8.9) K/mcL Lymphocytes # (0.6-4.6) K/mcL Monocytes # (0.0-1.3) K/mcL Eosinophils # (0.0-0.6) K/mcL Basophils # (0.0-0.2) K/mcL Sodium (136-145) mEq/L Potassium (3.5-5.1) mEq/L Chloride (98-107) mEq/L Carbon Dioxide (23-29) mEq/L BUN (8-23) mg/dL Creatinine (0.60-1.20) mg/dL Est GFR ( Amer) (> 60) Est GFR (Non-Af Amer) (> 60) BUN/Creatinine Ratio (6-26) Glucose (70-105) mg/dL Calculated Osmolality (280-300) Lactic Acid (0.5-2.2) mmol/L Calcium (8.6-10.3) mg/dL Troponin I (< 0.04) ng/mL B-Natriuretic Peptide 75 (Less than 100) pg/mL Attestation Statement - Attestation Attestation: I examined this patient and my medical decision-making was reviewed with the Resident Physician. I agree with the documented findings, disposition and treatment plan as described except to the extent set forth below. [id number] time provided Right lateral chest pain. Worse with cough. History of lung cancer. Oxygen dependent at baseline. Patient appears in no acute respiratory distress. She was evaluated in conjunction with the resident physician Dr. Martinez
[2018-06-04] MEDS ORDERED: Ipratropium/Albuterol Neb 3 ML IH ONE (16:47)
--- NOTE | 2018-06-04 16:55 | Emergency Department Note ---
Disposition Clinical Impression: Hyponatremia, Pneumonitis Dyspnea Qualifiers: Dyspnea type: unspecified Qualified Code(s): R06.00 - Dyspnea, unspecified Leukocytosis Qualifiers: Leukocytosis type: other Qualified Code(s): D72.828 - Other elevated white blood cell count Disposition: Admitted As Inpatient Condition: Fair Referrals: Michelle Kearns CNP [Primary Care Provider] - Time of Disposition: 19:42 General Adult HPI - General Stated complaint: sob, ruq pain Time Seen by Provider: 06/04/18 16:37 Source: patient, EMS Mode of arrival: EMS Limitations: no limitations Nursing Notes Reviewed: Yes Vital Signs Reviewed: Yes - History of Present Illness HPI Narrative: Patient is a 68-year-old female that presents emergency department with right- sided chest pain. Patient states this began yesterday. Patient states that she has had some mild increase in her shortness of breath. Patient states that she is oxygen dependent at home worse proximally 2 L of oxygen. Patient does state that she has a history of lung cancer and has had previous surgery for it. Patient states that she does have a cough but it is nonproductive. Patient denies any hemoptysis. Patient states that her symptoms are worse when she takes in a deep breath. Patient states that she has no association of her chest pain when she exerts herself. Patient states that her symptoms are better when she is sitting at rest. Patient states that she was receiving chemotherapy up until approximately 8 days ago. Patient states that she has no longer doing chemotherapy at this time. - Related Data Home Medications Medication Instructions Recorded Confirmed Cholecalciferol (D-3) [Vitamin D] 1,000 unit PO DAILY 02/19/17 06/02/18 Gabapentin [Neurontin] 300 mg PO TID 02/19/17 06/02/18 LORazepam [Ativan] 1 mg PO BID PRN 02/19/17 06/02/18 Meloxicam [Mobic] 15 mg PO DAILY 02/19/17 06/02/18 Albuterol Sulfate [Proventil Hfa] 2 puff IH Q4H PRN 02/02/18 06/02/18 Benzonatate [Tessalon] 100 mg PO TID PRN 02/02/18 06/02/18 Docusate [Colace] 100 mg PO DAILY 02/02/18 06/02/18 Duloxetine HCl [Cymbalta] 60 mg PO DAILY 02/02/18 06/02/18 Fluticasone/Salmeterol [Advair Hfa 2 puff IH BID 02/02/18 06/02/18 230-21 Mcg Inhaler] Multivitamin [One Daily Essential] 1 each PO DAILY 02/02/18 06/02/18 Potassium Chloride [Klor-Con M15] 99 meq PO DAILY 05/24/18 06/02/18 Benzonatate [Tessalon] 100 mg PO TID 06/02/18 06/02/18 hydrOXYzine HCl [Hydroxyzine HCl] 25 mg PO TID 06/02/18 06/02/18 Previous Rx's Medication Instructions Recorded Lidocaine/Prilocaine [Emla] 1 appl TP DAILY #30 gm 02/02/18 Magic Mouthwash [Magic Mouthwash 10 ml PO QID PRN #240 ml 02/02/18 BLM] Sucralfate [Carafate] 1 gm PO QIDAC #1 bottle 02/02/18 Dronabinol [Marinol] 5 mg PO BID 30 Days #60 capsule 03/02/18 Mirtazapine [Remeron] 15 mg PO HS #30 tablet 03/23/18 Promethazine [Phenergan] 25 mg PO Q6HR PRN #30 tablet 03/25/18 Ondansetron [Zofran] 8 mg PO Q8HR PRN #30 tablet 03/30/18 OxyCODONE/APAP 10/325 [Percocet 1 each PO Q6HR PRN 30 Days #120 04/25/18 10/325 MG] tablet Buspirone HCl [Buspar] 10 mg PO BID 30 Days #60 tablet 06/02/18 Dexamethasone [Decadron] 2 mg PO BID 30 Days #30 tab 06/02/18 Allergies Allergy/AdvReac Type Severity Reaction Status Date / Time Sulfa (Sulfonamide AdvReac Rash Verified 02/19/17 16:07 Antibiotics) All systems ED: reviewed and negative except as stated. Constitutional: Denies: fever Cardiovascular: Reports: chest pain Respiratory: Reports: dyspnea Gastrointestinal: Denies: abdominal pain, nausea, vomiting Past Medical History - Past Medical History Medical history: Reports: arthritis, cancer, COPD Surgical history: Reports: cholecystectomy, other Psychiatric history: Reports: anxiety, depression, PTSD [employer] history: Reports: bilateral tubal ligation - Social History Smoking Status: Current every day smoker Smokeless Tobacco Status: No Alcohol use: Reports: none Drug use: Reports: none Physical Exam - General Limitations: no limitations General appearance: alert, in no apparent distress - Head Head exam: atraumatic, normocephalic - Eye Eye exam: Present: normal appearance, EOMI - Neck Neck exam: Present: normal inspection, full ROM, trachea midline - Respiratory Respiratory exam: Present: other (Decreased breath sounds bilaterally. Mild crackles in bilateral bases.) - Cardiovascular Cardiovascular exam: Present: regular rate, normal rhythm, normal heart sounds, +S1, +S2 - Abdominal Exam Abdominal exam: Present: soft, Non-Tender, normal bowel sounds - Neurological Exam Neurological exam: Present: alert, oriented X3 - Psychiatric Psychiatric exam: Present: normal affect, normal mood - Skin Skin exam: Present: warm, dry, intact Course Vital Signs Temperature 98.2 F 06/04/18 16:38 Pulse Rate 102 06/04/18 16:38 Respiratory Rate 24 06/04/18 16:38 Blood Pressure 114/78 06/04/18 16:38 O2 Sat by Pulse Oximetry 94 06/04/18 16:38 Temperature 98.2 F 06/04/18 16:38 Pulse Rate 102 06/04/18 16:38 Respiratory Rate 18 06/04/18 17:00 Blood Pressure 114/78 06/04/18 16:38 O2 Sat by Pulse Oximetry 95 06/04/18 17:59 Oxygen Delivery Oxygen Delivery Oximizer Medical Decision Making - [facility] Narrative Medical decision making narrative: Due to the patient presents emergency department with right-sided chest pain and increased shortness of breath we will obtain basic laboratory testing including CBC, BMP, troponin chest x-ray and EKG. Patient had poor aeration we will provide the patient with a DuoNeb breathing treatment here in the emergency department. Patient was hypoxic on initial presentation in the 70s. Patient was placed on a venni oxygen mask and her oxygen saturations did improve. Patient does meet surge criteria but at this time we do not have an identifiable source of infection. Lactic and time lactic have been ordered. Blood cultures have also been ordered. We will hold on antibiotics or fluid bolus at this time until a source of infection is identifiable. 1900 patient was found to have a pneumonitis on CTA of the chest. Due to the patient having an elevated white count, being tachycardic and to With increased oxygen demand and having findings of pneumonitis we will start the patient on broad-spectrum antibiotics. Patient be started on vancomycin, Zosyn and Levaquin. Patient will need to be admitted to the hospital for further evaluation and management. Patient's oxygen saturations have been in the mid 90s on an oxygen mask. This is increased oxygen requirement from her baseline. Patient's troponin is negative, BNP is not elevated. Patient does have a mild hyponatremia of 130 however I do not feel that this needs to be replaced at this time. called and spoke the admitting hospitalist and he is except the patient to their service. Patient be admitted to the hospital this time for further evaluation and management. - Medical Records Medical records reviewed: Yes I reviewed the patient's medical records. - Lab Data Lab results reviewed: Yes I reviewed the patient's lab results. Result diagrams: 06/04/18 17:23 06/04/18 17:23 Lab Results 06/04/18 06/04/18 06/04/18 Range/Units 17:23 17:23 17:23 WBC 33.3 H* D (4.3-11.1) K/mcL RBC 3.88 (3.82-4.97) M/mcL Hgb 11.5 (11.5-15.4) g/dL Hct 34.7 L (35.3-44.9) % MCV 89.4 (83.0-100.0) fL MCH 29.6 (28.0-33.3) pg MCHC 33.1 (31.6-35.5) g/dL RDW 19.0 H (11.5-14.5) % Plt Count 319 (140-400) K/mcL MPV 8.6 L (9.4-12.4) fL Immature Gran % 1.1 (0-4) % Seg Neutrophils % 93.5 % Lymphocytes % 0.9 % Monocytes % 4.3 % Eosinophils % 0.1 % Basophils % 0.1 % Neutrophils # 31.1 H (1.6-8.9) K/mcL Lymphocytes # 0.3 L (0.6-4.6) K/mcL Monocytes # 1.4 H (0.0-1.3) K/mcL Eosinophils # 0.0 (0.0-0.6) K/mcL Basophils # 0.0 (0.0-0.2) K/mcL Sodium 130 L (136-145) mEq/L Potassium 3.5 (3.5-5.1) mEq/L Chloride 96 L (98-107) mEq/L Carbon Dioxide 23 (23-29) mEq/L BUN 24 H (8-23) mg/dL Creatinine 0.64 (0.60-1.20) mg/dL Est GFR ( Amer) > 60 (> 60) Est GFR (Non-Af Amer) > 60 (> 60) BUN/Creatinine Ratio 38 H (6-26) Glucose 107 H (70-105) mg/dL Calculated Osmolality 275 L (280-300) Lactic Acid 1.5 (0.5-2.2) mmol/L Calcium 8.9 (8.6-10.3) mg/dL Troponin I < 0.03 (< 0.04) ng/mL B-Natriuretic Peptide (Less than 100) pg/mL 06/04/18 Range/Units 17:23 WBC (4.3-11.1) K/mcL RBC (3.82-4.97) M/mcL Hgb (11.5-15.4) g/dL Hct (35.3-44.9) % MCV (83.0-100.0) fL MCH (28.0-33.3) pg MCHC (31.6-35.5) g/dL RDW (11.5-14.5) % Plt Count (140-400) K/mcL MPV (9.4-12.4) fL Immature Gran % (0-4) % Seg Neutrophils % % Lymphocytes % % Monocytes % % Eosinophils % % Basophils % % Neutrophils # (1.6-8.9) K/mcL Lymphocytes # (0.6-4.6) K/mcL Monocytes # (0.0-1.3) K/mcL Eosinophils # (0.0-0.6) K/mcL Basophils # (0.0-0.2) K/mcL Sodium (136-145) mEq/L Potassium (3.5-5.1) mEq/L Chloride (98-107) mEq/L Carbon Dioxide (23-29) mEq/L BUN (8-23) mg/dL Creatinine (0.60-1.20) mg/dL Est GFR ( Amer) (> 60) Est GFR (Non-Af Amer) (> 60) BUN/Creatinine Ratio (6-26) Glucose (70-105) mg/dL Calculated Osmolality (280-300) Lactic Acid (0.5-2.2) mmol/L Calcium (8.6-10.3) mg/dL Troponin I (< 0.04) ng/mL B-Natriuretic Peptide 75 (Less than 100) pg/mL - Radiology Data Radiology results reviewed: Yes I reviewed the patient's radiology results. Chest X-Ray 06/04/18 16:47 IMPRESSION: 1. Probable trace bilateral effusions. 2. COPD. D/ / 06/04/2018 17:52:58 Shannon Marie MD / Georgina Carpio Interpreting Provider: Shannon Marie MD Chest CTA 06/04/18 17:51 IMPRESSION: 1. No pulmonary embolism. 2. Status post mid and lower thoracic spinal fixation for chronic T10 and T11 changes. Underlying discitis/osteomyelitis or metastatic disease could give this appearance. Correlate with clinical history. 3. Main pulmonary enlargement can be seen with pulmonary hypertension but is nonspecific. 4. Inspissated secretions in bronchi to the right lower lobe with focal right lower lobe pneumonitis. 5. Unchanged to slightly decreased size of mediastinal and right hilar adenopathy as described in the mediastinum section above. 6. Exam is diminished because of breathing motion blurring detail. D/ / Fritz Borja / Fritz Borja Interpreting Provider: Fritz Borja - EKG Data EKG #1 EKG attestation: Yes I reviewed and interpreted this EKG. EKG results narrative: EKG shows sinus tachycardia at a rate of 101 bpm, [place] interval 129, QRS duration of 84, QTc of 461. No evidence of STEMI on EKG. There are occasional PVCs present on EKG.
[2018-06-04 17:42] LABS: Basophils % 0.1 %; Eosinophils % 0.1 %; Lymphocytes % 0.9 %; Mean Platelet Volume 8.6 fL (9.4-12.4); Monocytes % 4.3 %
[2018-06-04 17:44] LABS: Hematocrit 34.7 % (35.3-44.9); Hemoglobin 11.5 g/dL (11.5-15.4); Immature Granulocytes % 1.1 % (0-4); Lymphocytes # 0.3 K/mcL (0.6-4.6); Mean Corpuscular HGB Conc 33.1 g/dL (31.6-35.5); Mean Corpuscular Hemoglobin 29.6 pg (28.0-33.3); Mean Corpuscular Volume 89.4 fL (83.0-100.0); Monocytes # 1.4 K/mcL (0.0-1.3); Platelet Count 319 K/mcL (140-400); Red Blood Count 3.88 M/mcL (3.82-4.97); Segmented Neutrophils % 93.5 %
[2018-06-04 17:49] LABS: Neutrophils # 31.1 K/mcL (1.6-8.9)
[2018-06-04] MEDS ORDERED: Isovue-370 500 ML INFUS..BTL IV ONE (17:51)
[2018-06-04 18:04] LABS: BUN/Creatinine Ratio 38 (6-26); Blood Urea Nitrogen 24 mg/dL (8-23); Calcium 8.9 mg/dL (8.6-10.3); Carbon Dioxide 23 mEq/L (23-29); Chloride 96 mEq/L (98-107); Glucose 107 mg/dL (70-105); Osmolality,Calculated 275 (280-300); Potassium 3.5 mEq/L (3.5-5.1); Sodium 130 mEq/L (136-145); Troponin I < 0.03 ng/mL (< 0.04); eGFR For Non-African Americans > 60 (> 60)
[2018-06-04] MEDS ORDERED: Piperacillin/Tazobactam 3.375 GM in 0.9 % Sodium Chloride Mini Bag 100 ML IVPB ONE (19:00)
[2018-06-04] MEDS ORDERED: Levofloxacin 750 MG/150 ML 750 MG/150 ML BAG IVPB ONE (19:00)
--- NOTE | 2018-06-04 20:05 | Internal Med History&Physical ---
<Melodie Marcos N - Last Filed: 06/04/18 21:08> Date of Encounter: 06/04/18 Time of Encounter: 20:04 Internal Medicine - H&P: HPI Chief complaint: SOB and hypoxia Admitted From: Emergency Dept History of present illness: Ms. Mckoy is a 68 year old female with a history of small cell lung cancer, COPD, anxiety, depression, and arthritis. She presented to the ED complaining of worsening SOB over the last week and right-sided chest pain that began over the last few days. She underwent her last chemotherapy treatment approximately one week ago. She does use 2L supplemental oxygen at home; however, she was found to hypoxic with oxygen saturation in the 70s at the time of arrival to the ED. She does complain of a chronic cough that is nonproductive. She states that she first noticed the chest pain a few days ago while spending the weekend with her friend, and notes that the pain is worse with inspiration. She states that she was going to ignore it; however, she was apparently increasingly somnolent while with her friend to the point that her friend had to wake her up this morning. She also notes worsening trouble concentrating while performing simple tasks. Patient is very tearful, and expresses that she has been living with her sister since her cancer diagnosis; however, her sister stated a few days ago that the patient needed to move out suddenly. At this time, it is unclear if the patient has alternative living arrangements pending. Laboratory workup in the ED revealed an elevated WBC count of 33.3, sodium 130, chloride 96, and calculated osmolality of 275. Lactic acid was normal at 1.5. EKG and troponin were negative for acute cardiac process. CTA of the chest was obtained due to concern for PE. No PE was demonstrated, but inspissated secretions were noted in the bronchi to the right lower lobe with focal RLL pneumonitis. She was started on broad-spectrum antibiotic therapy with vancomycin, zosyn, and levaquin. She was admitted to the hospitalist service for further evaluation and treatment. ROS is negative for fever chills, or other systemic signs of infection. Patient denies any gastrointestinal upset, change in bowel habits, or decreased urinary output. Patient was seen and evaluated while in the ED. Nursing staff reported that the patient has had no urine output, even after straight catheterization. They also reported that the patient was somnolent, and oxygen saturation quickly decreases if her supplemental oxygen is removed. Patient was very somnolent throughout history and exam, falling asleep multiple times while answering questions. Her oxygen saturation was noted to decrease to 85-90% while conversing. Patient reiterated right-sided upper chest pain that is "pinching" in nature. She denied any other complaints or concerns at this time. Past Med Surg Social Fam HX - Past Medical History Medical history: arthritis, cancer, COPD Additional medical history: lung cancer with metastatic disease Psychiatric history: anxiety, depression, PTSD - Past Surgical History Surgical History: cholecystectomy, other Additional surgical history: TUBAL - Social History Smoking Status: Current every day smoker Smokeless Tobacco Status: No Alcohol use: none Drug use: none - Family History Father Adopted: No Living Status: Hx Family Cardiac Disorders: Yes Hx Family Respiratory Disorders: Yes Hx Family Cancer: No Hx Family GI Disorders: No Hx Family Endocrine Disorder: No Hx Family Neuromuscular Disorders: No Hx Family Neurologic Disorders: No Hx Family HEENT Disorders: No Hx Family Autoimmune Disorders: No Mother Adopted: No Living Status: Hx Family Cardiac Disorders: Yes Hx Family Respiratory Disorders: Yes Hx Family Cancer: No Hx Family GI Disorders: No Hx Family Endocrine Disorder: Yes Hx Family Neuromuscular Disorders: No Hx Family Neurologic Disorders: No Hx Family HEENT Disorders: No Hx Family Autoimmune Disorders: No Internal Medicine - H&P: Meds Cholecalciferol (D-3) [Vitamin D] 1,000 unit PO DAILY 02/19/17 [History] Gabapentin [Neurontin] 300 mg PO TID 02/19/17 [History] LORazepam [Ativan] 1 mg PO BID PRN 02/19/17 [History] Meloxicam [Mobic] 15 mg PO DAILY 02/19/17 [History] Albuterol Sulfate [Proventil Hfa] 2 puff IH Q4H PRN 02/02/18 [History] Benzonatate [Tessalon] 100 mg PO TID PRN 02/02/18 [History] Docusate [Colace] 100 mg PO QMWF 02/02/18 [History] Duloxetine HCl [Cymbalta] 60 mg PO DAILY 02/02/18 [History] Fluticasone/Salmeterol [Advair Hfa 230-21 Mcg Inhaler] 2 puff IH BID 02/02/18 [History] Lidocaine/Prilocaine [Emla] 1 appl TP DAILY #30 gm 02/02/18 [Rx] Magic Mouthwash [Magic Mouthwash BLM] 10 ml PO QID PRN #240 ml 02/02/18 [Rx] Multivitamin [One Daily Essential] 1 each PO DAILY 02/02/18 [History] Sucralfate [Carafate] 1 gm PO QIDAC #1 bottle 02/02/18 [Rx] Dronabinol [Marinol] 5 mg PO BID 30 Days #60 capsule 03/02/18 [Rx] Mirtazapine [Remeron] 15 mg PO HS #30 tablet 03/23/18 [Rx] Promethazine [Phenergan] 25 mg PO Q6HR PRN #30 tablet 03/25/18 [Rx] Ondansetron [Zofran] 8 mg PO Q8HR PRN #30 tablet 03/30/18 [Rx] OxyCODONE/APAP 10/325 [Percocet 10/325 MG] 1 each PO Q6HR PRN 30 Days #120 tablet 04/25/18 [Rx] Potassium Chloride [Klor-Con M15] 99 meq PO DAILY 05/24/18 [History] Benzonatate [Tessalon] 100 mg PO TID 06/02/18 [History] Buspirone HCl [Buspar] 10 mg PO BID 30 Days #60 tablet 06/02/18 [Rx] Dexamethasone [Decadron] 2 mg PO BID 30 Days #30 tab 06/02/18 [Rx] hydrOXYzine HCl [Hydroxyzine HCl] 25 mg PO TID 06/02/18 [History] Montelukast [Singulair] 5 mg PO DAILY 06/05/18 [History] Allergy/AdvReac Type Severity Reaction Status Date / Time Sulfa (Sulfonamide AdvReac Rash Verified 02/19/17 16:07 Antibiotics) All Systems PM: A 10-system review of systems was performed and is negative for pertinent findings except as documented above in the HPI. - Constitutional Vitals: Temp Pulse Resp BP Pulse Ox 98.2 F 102 18 114/78 95 06/04/18 16:38 06/04/18 16:38 06/04/18 17:00 06/04/18 16:38 06/04/18 17:59 Exam: GENERAL: Ill-appearing female in no acute distress. She appears somnolent and falls asleep frequently during exam. HEENT: Atraumatic and normocephalic. CARDIOVASCULAR: Regular rate and rhythm. S1 and S2 present. No murmurs, gallops, or rubs. RESPIRATORY: CTA bilaterally. Diffusely decreased breath sounds. Congested- sounding cough noted. GASTROINTESTINAL: Active bowel sounds x 4 quadrants. Abdomen is soft, nontender, and nondistended. BACK: Patient has several prominant thoracic vertebrae secondary to prior surgical procedures. Increased thoracic kyphosis present. EXTREMITIES: No clubbing, cyanosis, or edema. SKIN: Warm, dry, and intact. NEUROLOGIC: Patient is cooperative with exam and answers questions appropriately. No apparent focal deficits. PSYCHIATRIC: Patient is tearful and appears depressed. Internal Med - H&P Results - Labs CBC & Chem 7: 06/04/18 17:23 06/04/18 17:23 Labs: Short CBC 06/04/18 Range/Units 17:23 WBC 33.3 H* D (4.3-11.1) K/mcL Hgb 11.5 (11.5-15.4) g/dL Hct 34.7 L (35.3-44.9) % Plt Count 319 (140-400) K/mcL Neutrophils # 31.1 H (1.6-8.9) K/mcL BMP 06/04/18 17:23 Sodium 130 L Potassium 3.5 Chloride 96 L Carbon Dioxide 23 BUN 24 H Creatinine 0.64 Glucose 107 H Calcium 8.9 Cardiac Enzymes 06/04/18 Range/Units 17:23 Troponin I < 0.03 (< 0.04) ng/mL - Impressions ITS Impressions Chest X-Ray 06/04/18 16:47 IMPRESSION: 1. Probable trace bilateral effusions. 2. COPD. D/ : / 06/04/2018 17:52:58 Shannon Marie MD / Georgina Carpio Interpreting Provider: Shannon Marie MD Chest CTA 06/04/18 17:51 IMPRESSION: 1. No pulmonary embolism. 2. Status post mid and lower thoracic spinal fixation for chronic T10 and T11 changes. Underlying discitis/osteomyelitis or metastatic disease could give this appearance. Correlate with clinical history. 3. Main pulmonary enlargement can be seen with pulmonary hypertension but is nonspecific. 4. Inspissated secretions in bronchi to the right lower lobe with focal right lower lobe pneumonitis. 5. Unchanged to slightly decreased size of mediastinal and right hilar adenopathy as described in the mediastinum section above. 6. Exam is diminished because of breathing motion blurring detail. D/ / Fritz Borja / Fritz Borja Interpreting Provider: Fritz Borja - Assessment and plan (1) Acute hypoxemic respiratory failure Current Visit: Yes Status: Acute Assessment and plan: Unclear etiology - may be secondary to acute COPD exacerbation or RLL pneumonitis/pneumonia. Patient reports feeling increasingly short of breath over the last week, and has had worsening right-sided pleuritic chest pain. Her oxygen saturation does drop during conversation to 85-90%. Nursing staff states that if her oxygen is removed, she quickly desats to 60-70s,dudley - Obtain ABG - Supplemental oxygen titrated to 90% - Solumedrol 40mg Q6H - Toradol 30mg IVP - Duonebs Q4H scheduled - Albuterol neb Q2H PRN - Guaifenesin 600mg BID - Tesslon 100mg TID PRN (2) Pneumonitis Current Visit: Yes Status: Acute Assessment and plan: Chest CTA demonstrated inspissated secretions in bronchi to right lower lobe and focal RLL pneumonitis. Patient's last chemotherapy treatment was last week. Initial laboratory studies demonstrated elevated WBC count of 33.3; however, patient has been on chronic steroid therapy and denies any fevers or chills. She was started on broad spectrum antibiotic therapy for suspected HCAP while in the ED. - Vancomycin 750mg x 1 dose - Zosyn 3.375gm x 1 dose - Levofloxacin 750mg x 1 dose - Urine strep and legionella antigens (3) Hyponatremia Current Visit: Yes Status: Acute Assessment and plan: Unclear etiology - may be secondary to small cell lung cancer or dehydration due to poor PO intake. - 0.9% sodium chloride gtt at 75mL/hr - Repeat electrolyte studies with AM labs (4) Small cell lung cancer, right upper lobe Current Visit: No Status: Acute Assessment and plan: Patient's last chemotherapy treatment was approximately one week ago. Review of home medications shows pain management via percocet 10mg; however, due to patient's somnolence on exam, will hold that medication at this time. (5) DVT prophylaxis Current Visit: No Status: Acute Assessment and plan: Heparin 5000units SQ Q8H (6) Anxiety and depression Current Visit: Yes Status: Acute Assessment and plan: Patient has a history of anxiety, depression, and PTSD. She takes several home medications, including hydroxyzine, mirtazapine, ativan, duloxetine, and buspirone. Due to increased somnolence, will hold these medications at this time. - Time Spent With Patient Total time spent is greater than 50% in coordination of care (as documented) at patient's floor/unit and/or counseling patient: <Yamileth Arzola - Last Filed: 06/05/18 04:49> Internal Medicine - H&P: HPI History of present illness: Ms. Mckoy is a 68 year old female All Systems PM: A 10-system review of systems was performed and is negative for pertinent findings except as documented above in the HPI. - Constitutional Vitals: Temp Pulse Resp BP Pulse Ox 97.5 F L 84 18 124/79 95 06/04/18 21:59 06/04/18 21:59 06/05/18 04:26 06/04/18 21:59 06/05/18 04:26 Internal Med - H&P Results - Labs CBC & Chem 7: 06/05/18 04:16 06/04/18 17:23 Labs: Short CBC 06/04/18 06/05/18 Range/Units 17:23 04:16 WBC 33.3 H* D 24.9 H (4.3-11.1) K/mcL Hgb 11.5 10.2 L (11.5-15.4) g/dL Hct 34.7 L 30.3 L (35.3-44.9) % Plt Count 319 278 (140-400) K/mcL Neutrophils # 31.1 H (1.6-8.9) K/mcL BMP 06/04/18 17:23 Sodium 130 L Potassium 3.5 Chloride 96 L Carbon Dioxide 23 BUN 24 H Creatinine 0.64 Glucose 107 H Calcium 8.9 Cardiac Enzymes 06/04/18 Range/Units 17:23 Troponin I < 0.03 (< 0.04) ng/mL Urine 06/04/18 Range/Units 22:40 Urine Color Yellow (Yellow) Urine Clarity Clear (Clear) Urine pH 6.0 (5.0-8.0) pH Units Ur Specific Stanton > 1.030 H (1.010-1.025) Urine Protein Negative (Neg-Trace) mg/dL Urine Glucose (UA) Normal (Normal) mg/dL - ABG Interpretation ABG results: 06/04/18 22:42 ABG pH 7.45 ABG pCO2 36 ABG pO2 81 L ABG HCO3 25 ABG Total CO2 27 H ABG O2 Saturation 97 ABG Base Excess 2 - Impressions ITS Impressions Chest X-Ray 06/04/18 16:47 IMPRESSION: 1. Probable trace bilateral effusions. 2. COPD. D/ / 06/04/2018 17:52:58 Shannon Marie MD / Georgina Carpio Interpreting Provider: Shannon Marie MD Chest CTA 06/04/18 17:51 IMPRESSION: 1. No pulmonary embolism. 2. Status post mid and lower thoracic spinal fixation for chronic T10 and T11 changes. Underlying discitis/osteomyelitis or metastatic disease could give this appearance. Correlate with clinical history. 3. Main pulmonary enlargement can be seen with pulmonary hypertension but is nonspecific. 4. Inspissated secretions in bronchi to the right lower lobe with focal right lower lobe pneumonitis. 5. Unchanged to slightly decreased size of mediastinal and right hilar adenopathy as described in the mediastinum section above. 6. Exam is diminished because of breathing motion blurring detail. D/ / Fritz Borja / Fritz Borja Interpreting Provider: Fritz Borja - Assessment and plan (1) DVT prophylaxis Current Visit: No Status: Acute (2) Small cell lung cancer, right upper lobe Current Visit: No Status: Acute (3) Hyponatremia Current Visit: Yes Status: Acute (4) Pneumonitis Current Visit: Yes Status: Acute (5) Acute hypoxemic respiratory failure Current Visit: Yes Status: Acute (6) Anxiety and depression Current Visit: Yes Status: Acute - Time Spent With Patient Total time spent is greater than 50% in coordination of care (as documented) at patient's floor/unit and/or counseling patient: - Attending Attestation Patient seen and examined. Chart reviewed. Case discussed with resident. Agree with assessment and plan. Acute hypoxic respiratory failure in the setting of pneumonitis with elevated white blood cell count. Patient does not appear to be septic. We will continue with antibiotics and reassess.
[2018-06-04] MEDS ORDERED: Benzonatate 100 MG CAPSULE PO PRN (21:12)
[2018-06-04] MEDS ORDERED: Albuterol 2.5 MG/3 ML NEBULIZER IH PRN (21:14)
[2018-06-04] MEDS ORDERED: Naloxone 0.4 MG/ML INJ IVP PRN (21:16)
[2018-06-04] MEDS ORDERED: Ketorolac 30 MG/ML VIAL IVP ONE (21:24)
[2018-06-04 22:46] LABS: ABG Base Excess 2 mEq/L (-2 to 3); ABG HCO3 25 mEq/L (21-27); ABG Oxygen Saturation 97 % (95-98); ABG PCO2 36 mmHg (35-45); ABG PH 7.45 pH Units (7.32-7.45); ABG PO2 81 mmHg (85-104); ABG TCO2 27 mEq/L (20-26)
[2018-06-04 23:12] LABS: Bilirubin,Urine Negative (Negative); Blood,Urine Negative (Negative); Clarity,Urine Clear (Clear); Color,Urine Yellow (Yellow); Glucose,Urine (UA) Normal (Normal); Ketones,Urine Negative (Negative); Leukocyte Esterase,Urine Negative (Negative); Nitrite,Urine Negative (Negative); Protein,Urine Negative (Neg-Trace); Specific Gravity,Urine > 1.030 (1.010-1.025); Urobilinogen,Urine Normal (Normal)
[2018-06-04] MEDS: 0.9 % Sodium Chloride 1,000 ML IVC SCH (23:29)
[2018-06-04] MEDS: *HR* Heparin 5,000 UNIT/ML VIAL SQ SCH (23:30)
[2018-06-04] MEDS: MethylPREDNISolone 40 MG/ML VIAL IVP SCH (23:30)
[2018-06-04] MEDS: Ipratropium/Albuterol Neb 3 ML IH SCH (23:48)
[2018-06-05] MEDS ORDERED: Ondansetron ODT 4 MG TAB.RAPDIS PO PRN (02:24)
[2018-06-05] MEDS ORDERED: Magic Mouthwash 10 ML UD Cup PO PRN (02:24)
[2018-06-05] MEDS: Ipratropium/Albuterol Neb 3 ML IH SCH ×5 (04:26→19:59)
[2018-06-05 04:28] LABS: Basophils % 0.1 %; Mean Corpuscular Volume 88.6 fL (83.0-100.0)
[2018-06-05 04:29] LABS: Hematocrit 30.3 % (35.3-44.9); Hemoglobin 10.2 g/dL (11.5-15.4); Immature Granulocytes % 0.6 % (0-4); Lymphocytes # 0.1 K/mcL (0.6-4.6); Lymphocytes % 0.4 %; Mean Corpuscular HGB Conc 33.7 g/dL (31.6-35.5); Mean Corpuscular Hemoglobin 29.8 pg (28.0-33.3); Mean Platelet Volume 8.8 fL (9.4-12.4); Monocytes # 0.1 K/mcL (0.0-1.3); Monocytes % 0.5 %; Neutrophils # 24.5 K/mcL (1.6-8.9); Platelet Count 278 K/mcL (140-400); Red Blood Count 3.42 M/mcL (3.82-4.97); Red Cell Distribution Width 18.6 % (11.5-14.5); Segmented Neutrophils % 98.4 %
[2018-06-05 04:48] LABS: BUN/Creatinine Ratio 32 (6-26); Blood Urea Nitrogen 19 mg/dL (8-23); Calcium 8.6 mg/dL (8.6-10.3); Carbon Dioxide 22 mEq/L (23-29); Chloride 98 mEq/L (98-107); Glucose 228 mg/dL (70-105); Osmolality,Calculated 281 (280-300); Potassium 3.7 mEq/L (3.5-5.1); Sodium 131 mEq/L (136-145); eGFR For Non-African Americans > 60 (> 60)
[2018-06-05 04:55] LABS: Anisocytosis 1+ (Not Present); Platelet Estimate Normal (Normal)
[2018-06-05] MEDS: MethylPREDNISolone 40 MG/ML VIAL IVP SCH ×4 (05:24→23:23)
[2018-06-05] MEDS: Piperacillin/Tazobactam 3.375 GM in 0.9 % Sodium Chloride Mini Bag 100 ML IVPB SCH ×3 (05:24→22:47)
[2018-06-05] MEDS: *HR* Heparin 5,000 UNIT/ML VIAL SQ SCH (05:24)
[2018-06-05] MEDS: POTASSIUM CHLORIDE 99 MG PO SCH (07:59)
[2018-06-05] MEDS: Nicotine 21 MG PATCH.TD24 TD SCH (08:13)
[2018-06-05] MEDS: Cholecalciferol (D-3) 1,000 UNIT TABLET PO SCH (08:13)
[2018-06-05] MEDS: Levofloxacin 750 MG/150 ML 750 MG/150 ML BAG IVPB SCH (08:13)
[2018-06-05] MEDS: Multivit/Ca/Min/Fe/FA 1 TAB TABLET PO SCH (08:13)
[2018-06-05] MEDS ORDERED: *HR* Alteplase (Cathflo) 2 MG VIAL IVP ONE (10:35)
[2018-06-05] MEDS: *HR* LORazepam 1 MG TABLET PO PRN ×2 (11:18→19:32)
[2018-06-05] MEDS: Benzonatate 100 MG CAPSULE PO SCH ×2 (16:30→21:58)
--- NOTE | 2018-06-05 17:38 | Internal Med Progress Note ---
Hospitalist Progress Note - Encounter Date of Encounter: 06/05/18 Time of Encounter: 11:00 - Subjective Interval History: Patient is a 68-year-old female with history of small cell lung carcinoma found to have secretions in the bronchi of the right lower lobe with right lower lobe pneumonitis Patient with slight improvement in leukocytosis on IV antibiotics with coverage for healthcare acquired pneumonia - Exam Vitals: Temp Pulse Resp BP Pulse Ox 98.5 F 113 20 153/82 92 06/05/18 17:25 06/05/18 17:25 06/05/18 17:25 06/05/18 17:25 06/05/18 17:25 Exam: Gen.: Nonacute distress, alert and oriented 3 ENT: Mucosal membranes moist Respiratory: Lungs are clear to auscultation bilaterally without any wheezing rhonchi or rales Cardiovascular: Normal S1 and S2 regular rate rhythm no murmurs rubs or gallops Abdomen: Soft, nontender and nondistended with positive bowel sounds Extremities: No lower extremity edema Skin: Normal color - Assessment and Plan (1) Pneumonitis Current Visit: Yes Status: Acute Assessment and Plan: Patient is a 68-year-old female with history of small cell lung carcinoma found to have secretions in the bronchi of the right lower lobe with right lower lobe pneumonitis Patient with slight improvement in leukocytosis on IV antibiotics with coverage for healthcare acquired pneumonia Continue current management with day 2 of IV vancomycin, Zofran and Levaquin. 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 (3) Hyponatremia Current Visit: Yes Status: Acute Assessment and Plan: Suspect secondary to lung carcinoma Sodium 131 this morning and was 129 on admission 3 days ago Continue to monitor (4) Anxiety and depression Current Visit: Yes Status: Acute Assessment and Plan: Continue home medications DVT Prophylaxis: Lovenox subcutaneous - Time Spent with Patient Total time spent is greater than 50% in coordination of care (as documented) at patient's floor/unit and/or counseling patient: Internal Medicine: Result - Labs CBC & Chem 7: 06/05/18 04:16 06/05/18 04:16 Labs: Short CBC 06/04/18 06/05/18 Range/Units 17:23 04:16 WBC 33.3 H* D 24.9 H (4.3-11.1) K/mcL Hgb 11.5 10.2 L (11.5-15.4) g/dL Hct 34.7 L 30.3 L (35.3-44.9) % Plt Count 319 278 (140-400) K/mcL Neutrophils # 31.1 H 24.5 H (1.6-8.9) K/mcL BMP 06/04/18 06/05/18 17:23 04:16 Sodium 130 L 131 L Potassium 3.5 3.7 Chloride 96 L 98 Carbon Dioxide 23 22 L BUN 24 H 19 Creatinine 0.64 0.59 L Glucose 107 H 228 H Calcium 8.9 8.6 Cardiac Enzymes 06/04/18 Range/Units 17:23 Troponin I < 0.03 (< 0.04) ng/mL Urine 06/04/18 Range/Units 22:40 Urine Color Yellow (Yellow) Urine Clarity Clear (Clear) Urine pH 6.0 (5.0-8.0) pH Units Ur Specific [place] > 1.030 H (1.010-1.025) Urine Protein Negative (Neg-Trace) mg/dL Urine Glucose (UA) Normal (Normal) mg/dL - ABG Interpretation ABG results: ABG ABG pH 7.45 pH Units (7.32-7.45) 06/04/18 22:42 ABG pCO2 36 mmHg (35-45) 06/04/18 22:42 ABG pO2 81 mmHg (85-104) L 06/04/18 22:42 ABG O2 Saturation 97 % (95-98) 06/04/18 22:42 - Impressions Impressions Chest X-Ray 06/04/18 16:47 IMPRESSION: 1. Probable trace bilateral effusions. 2. COPD. D/ / 06/04/2018 17:52:58 Shannon Marie MD / Georgina Carpio Interpreting Provider: Shannon Marie MD Chest CTA 06/04/18 17:51 IMPRESSION: 1. No pulmonary embolism. 2. Status post mid and lower thoracic spinal fixation for chronic T10 and T11 changes. Underlying discitis/osteomyelitis or metastatic disease could give this appearance. Correlate with clinical history. 3. Main pulmonary enlargement can be seen with pulmonary hypertension but is nonspecific. 4. Inspissated secretions in bronchi to the right lower lobe with focal right lower lobe pneumonitis. 5. Unchanged to slightly decreased size of mediastinal and right hilar adenopathy as described in the mediastinum section above. 6. Exam is diminished because of breathing motion blurring detail. D/ / Fritz Borja / Fritz Borja Interpreting Provider: Fritz Borja Consult Discharge Plan - Plan Referrals: Michelle Kearns, [employer] [Primary Care Provider] -
[2018-06-05] MEDS: 0.9 % Sodium Chloride 1,000 ML IVC SCH (19:07)
[2018-06-06] MEDS: Ipratropium/Albuterol Neb 3 ML IH SCH ×6 (00:02→19:56)
[2018-06-06] MEDS ORDERED: *HR* OxyCODONE/APAP 10/325 TABLET PO PRN (02:41)
[2018-06-06 03:30] LABS: Basophils % 0.1 %; Hematocrit 30.8 % (35.3-44.9); Hemoglobin 10.1 g/dL (11.5-15.4); Immature Granulocytes % 0.6 % (0-4); Lymphocytes # 0.1 K/mcL (0.6-4.6); Lymphocytes % 0.5 %; Mean Corpuscular HGB Conc 32.8 g/dL (31.6-35.5); Mean Corpuscular Hemoglobin 29.4 pg (28.0-33.3); Mean Corpuscular Volume 89.8 fL (83.0-100.0); Mean Platelet Volume 8.8 fL (9.4-12.4); Monocytes # 0.3 K/mcL (0.0-1.3); Monocytes % 1.6 %; Neutrophils # 16.7 K/mcL (1.6-8.9); Platelet Count 315 K/mcL (140-400); Red Blood Count 3.43 M/mcL (3.82-4.97); Red Cell Distribution Width 18.2 % (11.5-14.5); Segmented Neutrophils % 97.2 %
[2018-06-06 03:49] LABS: Alanine Aminotransferase 27 Units/L (7-52); Albumin 3.7 g/dL (3.5-5.7); Albumin/Globulin Ratio 1.9 (1.1-2.2); Alkaline Phosphatase 82 Units/L (34-104); Aspartate Amino Transferase 34 Units/L (13-39); BUN/Creatinine Ratio 22 (6-26); Bilirubin,Total 0.5 mg/dL (0.3-1.0); Blood Urea Nitrogen 12 mg/dL (8-23); Calcium 8.9 mg/dL (8.6-10.3); Carbon Dioxide 23 mEq/L (23-29); Chloride 102 mEq/L (98-107); Glucose 162 mg/dL (70-105); Osmolality,Calculated 277 (280-300); Potassium 3.6 mEq/L (3.5-5.1); Sodium 132 mEq/L (136-145); Total Protein 5.7 g/dL (6.4-8.9); eGFR For Non-African Americans > 60 (> 60)
[2018-06-06 03:54] LABS: Platelet Estimate Normal (Normal)
[2018-06-06] MEDS: Piperacillin/Tazobactam 3.375 GM in 0.9 % Sodium Chloride Mini Bag 100 ML IVPB SCH (06:25)
[2018-06-06] MEDS: *HR* Enoxaparin 40 MG/0.4 ML SYRINGE SQ SCH (06:28)
[2018-06-06] MEDS: MethylPREDNISolone 40 MG/ML VIAL IVP SCH ×3 (06:28→18:54)
[2018-06-06] MEDS ORDERED: Aminoglycoside Consult 1 EACH MC ONE (07:44)
[2018-06-06] MEDS: POTASSIUM CHLORIDE 99 MG PO SCH (08:16)
[2018-06-06] MEDS: Multivit/Ca/Min/Fe/FA 1 TAB TABLET PO SCH (08:25)
[2018-06-06] MEDS: Benzonatate 100 MG CAPSULE PO SCH ×3 (08:25→21:07)
[2018-06-06] MEDS: *HR* LORazepam 1 MG TABLET PO PRN (08:25)
[2018-06-06] MEDS: Nicotine 21 MG PATCH.TD24 TD SCH (08:25)
[2018-06-06] MEDS: Cholecalciferol (D-3) 1,000 UNIT TABLET PO SCH (08:25)
[2018-06-06] MEDS: Levofloxacin 750 MG/150 ML 750 MG/150 ML BAG IVPB SCH (08:26)
--- NOTE | 2018-06-06 14:09 | Discharge Summary ---
- NOTES TO OUTPATIENT PROVIDER Notes to Outpatient Provider: PCP in 5 to 7 days. 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 WBC down from 33 to 17.1 Will DC on Levaquin to complete antibiotic course. Pt is chronically on steroid (4) Anxiety and depression Priority: Secondary Status: Acute Assessment and Plan: Continue home medications Hospital course: Ms. Mckoy is a 68 year old female with medical history of small cell cancer, COPD, anxiety, depression, and arthritis. She presented to the ED complaining of worsening SOB over the last week and right-sided chest pain that began over the last few days. She underwent her last chemotherapy treatment approximately one week ago. She does use 2L supplemental oxygen at home; however, she was found to hypoxic with oxygen saturation in the 70s at the time of arrival to the ED. She does complain of a chronic cough that is nonproductive. She states that she first noticed the chest pain a few days ago while spending the weekend with her friend, and notes that the pain is worse with inspiration. She states that she was going to ignore it; however, she was apparently increasingly somnolent while with her friend to the point that her friend had to wake her up this morning. She also notes worsening trouble concentrating while performing simple tasks. Patient is very tearful, and expresses that she has been living with her sister since her cancer diagnosis; however, her sister stated a few days ago that the patient needed to move out suddenly. At this time, it is unclear if the patient has alternative living arrangements pending. Laboratory workup in the ED revealed an elevated WBC count of 33.3, sodium 130, chloride 96, and calculated osmolality of 275. Lactic acid was normal at 1.5. EKG and troponin were negative for acute cardiac process. CTA of the chest was obtained due to concern for PE. No PE was demonstrated, but inspissated secretions were noted in the bronchi to the right lower lobe with focal RLL pneumonitis. She was started on broad-spectrum antibiotic therapy with vancomycin, zosyn, and levaquin. She was admitted to the hospitalist service for further evaluation and treatment. ROS is negative for fever chills, or other systemic signs of infection. Patient denies any gastrointestinal upset, change in bowel habits, or decreased urinary output. Patient was seen and evaluated while in the ED. Nursing staff reported that the patient has had no urine output, even after straight catheterization. They also reported that the patient was somnolent, and oxygen saturation quickly decreases if her supplemental oxygen is removed. Patient was very somnolent throughout history and exam, falling asleep multiple times while answering questions. Her oxygen saturation was noted to decrease to 85-90% while conversing. Patient reiterated right-sided upper chest pain that is "pinching" in nature. She denied any other complaints or concerns at this time. See HPI for complete history and physical Discharge discussed with: patient - Time Spent with Patient Total time spent providing and/or coordinating discharge services: Greater than 30 minutes - Discharge Medications Home Medications: Cholecalciferol (D-3) [Vitamin D] 1,000 unit PO DAILY 02/19/17 [History] Gabapentin [Neurontin] 300 mg PO TID 02/19/17 [History] LORazepam [Ativan] 1 mg PO TID PRN 02/19/17 [History] Meloxicam [Mobic] 15 mg PO DAILY 02/19/17 [History] Albuterol Sulfate [Proventil Hfa] 2 puff IH Q4H PRN 02/02/18 [History] Benzonatate [Tessalon] 100 mg PO TID PRN 02/02/18 [History] Docusate [Colace] 100 mg PO Q48H 02/02/18 [History] Duloxetine HCl [Cymbalta] 60 mg PO DAILY 02/02/18 [History] Fluticasone/Salmeterol [Advair Hfa 230-21 Mcg Inhaler] 2 puff IH BID 02/02/18 [History] Lidocaine/Prilocaine [Emla] 1 appl TP DAILY #30 gm 02/02/18 [Rx] Magic Mouthwash [Magic Mouthwash BLM] 10 ml PO QID PRN #240 ml 02/02/18 [Rx] Multivitamin [One Daily Essential] 1 each PO DAILY 02/02/18 [History] Dronabinol [Marinol] 5 mg PO BID 30 Days #60 capsule 03/02/18 [Rx] Mirtazapine [Remeron] 15 mg PO HS #30 tablet 03/23/18 [Rx] Ondansetron [Zofran] 8 mg PO Q8HR PRN #30 tablet 03/30/18 [Rx] OxyCODONE/APAP 10/325 [Percocet 10/325 MG] 1 each PO Q6HR PRN 30 Days #120 tablet 04/25/18 [Rx] Buspirone HCl [Buspar] 10 mg PO BID 30 Days #60 tablet 06/02/18 [Rx] Dexamethasone [Decadron] 2 mg PO BID 30 Days #30 tab 06/02/18 [Rx] hydrOXYzine HCl [Hydroxyzine HCl] 25 mg PO TID 06/02/18 [History] Alendronate Sodium [Fosamax] 70 mg PO ZAYAS 06/05/18 [History] Lactobacillus Acidophilus [Acidophilus Probiotic] 1 mg PO DAILY 06/05/18 [History] Loratadine [Allergy Relief] 10 mg PO DAILY 06/05/18 [History] Montelukast [Singulair] 5 mg PO DAILY 06/05/18 [History] Potassium Gluconate [Potassium] 99 mg PO DAILY 06/05/18 [History] levoFLOXacin [Levaquin] 750 mg PO DAILY 7 Days #7 tablet 06/06/18 [Rx] Allergies/Adverse Reactions: Allergy/AdvReac Type Severity Reaction Status Date / Time Sulfa (Sulfonamide AdvReac Rash Verified 02/19/17 16:07 Antibiotics) Date of admission: 06/04/18 22:21 Primary care physician: Michelle Kearns CNP Consults: 06/04/18 17:03 Consult to Yield Improvement Engineer [CONS] Stat Reason for SW Consult: pt is homeless, has metastatic lung cancer 06/04/18 22:23 Consult to Pulmonology [CONS] Routine Consulting Provider: [facility] Reason for Consult: Acute hpoxemic repsiratory failure in the setting Metastatic SCC s/p chemotherapy. CT showing Pneumonitis and concern for Mucus plugging of the right bronchus Call Completed: No 06/04/18 23:59 Consult to Nutrition [CONS] Routine Comment: Consulting Provider: NUTRITION Reason for Dietary Consult: MST Score Discharging clinician: Debi Bain Anticipated date of discharge: 06/06/18 - Constitutional Vitals: Temp Pulse Resp BP Pulse Ox 98.3 F 109 18 167/92 94 06/06/18 11:14 06/06/18 11:14 06/06/18 11:14 06/06/18 11:14 06/06/18 11:14 Exam: Gen.: Nonacute distress, alert and oriented 3 ENT: Mucosal membranes moist Respiratory: Lungs are clear to auscultation bilaterally but diminished breath sounds B/L. Without any wheezing rhonchi or rales Cardiovascular: Normal S1 and S2 regular rate rhythm no murmurs rubs or gallops Abdomen: Soft, nontender and nondistended with positive bowel sounds Extremities: No lower extremity edema Skin: Normal color - Head Head exam: Present: atraumatic, normocephalic - Eye Eye exam: Present: PERRL, conjuntiva pink, sclera anicteric Pupils: Present: PERRL - Neck Neck exam general surgery: Present: supple, trachea midline. Absent: lymphadenopathy - Respiratory Respiratory exam: Present: CTAB. Absent: accessory muscle use, rales, rhonchi, wheezes - Cardiovascular Cardiovascular exam: Present: RRR, +S1, +S2. Absent: diastolic murmur, gallop, rubs, systolic murmur - GI/Abdominal GI/Abdominal exam: Present: normal bowel sounds, soft, no peritoneal signs. Absent: distended, tenderness - Extremities Exam Extremities exam: Present: warm, radial pulses palpable and symmetrical. Absent: calf tenderness, cyanotic, pedal edema - Neurological Exam Neurological exam: Present: CN II-XII intact, oriented X3, no focal deficits. Absent: pronater drift, facial droop, speech deficit - Skin Skin exam: Present: dry, intact - Patient Status Disposition: Home, Self-Care Condition: Fair Overall status at discharge: patient is progressing back to baseline - Discharge Instructions Follow Up With: Michelle Kearns VEHICLE MONITOR TECHNICIAN [Primary Care Provider] - Forms: ED Satisfaction Letter, Work/School Release - Diet and Activity Activity: increase activity as tolerated Diet: advance to your usual diet
--- NOTE | 2018-06-06 15:35 | Event Note ---
Date of Encounter: 06/06/18 Time of Encounter: 15:32 Holding discharge as pt finally confessed to SW that she is homeless. She had not been forthcoming about her living situation. Pt's sister and her where not getting along and sister does not want her back. Martha DOMÍNGUEZ to reassess and will attempt to get her placement tomorrow 06/07/2018
[2018-06-07] MEDS: Ipratropium/Albuterol Neb 3 ML IH SCH ×5 (00:02→15:27)
[2018-06-07] MEDS: MethylPREDNISolone 40 MG/ML VIAL IVP SCH ×3 (00:30→12:50)
[2018-06-07 04:22] LABS: Basophils % 0.1 %; Hematocrit 33.1 % (35.3-44.9); Hemoglobin 10.8 g/dL (11.5-15.4); Immature Granulocytes % 0.5 % (0-4); Lymphocytes # 0.2 K/mcL (0.6-4.6); Lymphocytes % 0.9 %; Mean Corpuscular HGB Conc 32.6 g/dL (31.6-35.5); Mean Corpuscular Hemoglobin 29.6 pg (28.0-33.3); Mean Corpuscular Volume 90.7 fL (83.0-100.0); Mean Platelet Volume 8.9 fL (9.4-12.4); Monocytes # 0.5 K/mcL (0.0-1.3); Monocytes % 3.2 %; Neutrophils # 16.1 K/mcL (1.6-8.9); Platelet Count 367 K/mcL (140-400); Red Blood Count 3.65 M/mcL (3.82-4.97); Red Cell Distribution Width 18.5 % (11.5-14.5); Segmented Neutrophils % 95.3 %
[2018-06-07 04:37] LABS: Alanine Aminotransferase 32 Units/L (7-52); Albumin 3.9 g/dL (3.5-5.7); Albumin/Globulin Ratio 1.9 (1.1-2.2); Alkaline Phosphatase 84 Units/L (34-104); Aspartate Amino Transferase 40 Units/L (13-39); BUN/Creatinine Ratio 29 (6-26); Bilirubin,Total 0.4 mg/dL (0.3-1.0); Blood Urea Nitrogen 22 mg/dL (8-23); Calcium 9.4 mg/dL (8.6-10.3); Carbon Dioxide 25 mEq/L (23-29); Chloride 103 mEq/L (98-107); Globulin 2.1 g/dL (2.4-3.5); Glucose 159 mg/dL (70-105); Osmolality,Calculated 291 (280-300); Potassium 3.7 mEq/L (3.5-5.1); Sodium 137 mEq/L (136-145); eGFR For Non-African Americans > 60 (> 60)
[2018-06-07 05:30] LABS: Platelet Estimate Normal (Normal)
[2018-06-07] MEDS: *HR* Enoxaparin 40 MG/0.4 ML SYRINGE SQ SCH (05:30)
[2018-06-07] MEDS: Piperacillin/Tazobactam 3.375 GM in 0.9 % Sodium Chloride Mini Bag 100 ML IVPB SCH (08:26)
[2018-06-07] MEDS: Nicotine 21 MG PATCH.TD24 TD SCH (08:47)
[2018-06-07] MEDS: Multivit/Ca/Min/Fe/FA 1 TAB TABLET PO SCH (08:48)
[2018-06-07] MEDS: Benzonatate 100 MG CAPSULE PO SCH ×2 (08:48→15:00)
[2018-06-07] MEDS: Cholecalciferol (D-3) 1,000 UNIT TABLET PO SCH (08:48)
[2018-06-07] MEDS ORDERED: levoFLOXacin 750 MG TABLET PO SCH (09:00)
[2018-06-07] MEDS ORDERED: Potassium Chloride Elixir 20 MEQ/15 ML UDC PO SCH (09:00)
[2018-06-07 11:31] VITALS: BP 138/81
[2018-06-07] MEDS: *HR* LORazepam 1 MG TABLET PO PRN (12:55)
--- NOTE | 2018-06-07 16:19 | Event Note ---
Date of Encounter: 06/07/18 Time of Encounter: 16:04 Pt discharged 06/06/2018 but did not have a place to go. She did not inform us that she was homeless. Discussed with CATRACHITA yesterday and pt accepted to [facility] today 06/07/2018. No acute changes during the night and pt continues to improve. 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 WBC down from 33 to 17.1 Will DC on Levaquin to complete antibiotic course. Pt is chronically on steroid (4) Anxiety and depression Priority: Secondary Status: Acute Assessment and Plan: Continue home medications Exam: Gen.: Nonacute distress, alert and oriented 3 ENT: Mucosal membranes moist Respiratory: Lungs are clear to auscultation bilaterally but diminished breath sounds B/L. Without any wheezing rhonchi or rales Cardiovascular: Normal S1 and S2 regular rate rhythm no murmurs rubs or gallops Abdomen: Soft, nontender and nondistended with positive bowel sounds Extremities: No lower extremity edema Skin: Normal color
--- NOTE | 2018-06-07 16:19 | Physician Discharge Referral ---
ExtendedCare Referral Info Provider in Charge after Transfer: PCP Institutional Level of Care: Skilled - Diagnosis (1) Small cell lung cancer, right upper lobe Priority: Primary Status: Acute (2) Hyponatremia Priority: Secondary Status: Acute (3) Pneumonitis Priority: Primary Status: Acute (4) Anxiety and depression Priority: Secondary Status: Acute - Transfer Medications Prescriptions: Dexamethasone 4 mg PO BID #28 tab levoFLOXacin [Levaquin] 750 mg PO DAILY 7 Days #7 tablet Home Medications: Cholecalciferol (D-3) [Vitamin D] 1,000 unit PO DAILY 02/19/17 [History] Gabapentin [Neurontin] 300 mg PO TID 02/19/17 [History] LORazepam [Ativan] 1 mg PO TID PRN 02/19/17 [History] Meloxicam [Mobic] 15 mg PO DAILY 02/19/17 [History] Albuterol Sulfate [Proventil Hfa] 2 puff IH Q4H PRN 02/02/18 [History] Benzonatate [Tessalon] 100 mg PO TID PRN 02/02/18 [History] Docusate [Colace] 100 mg PO Q48H 02/02/18 [History] Duloxetine HCl [Cymbalta] 60 mg PO DAILY 02/02/18 [History] Fluticasone/Salmeterol [Advair Hfa 230-21 Mcg Inhaler] 2 puff IH BID 02/02/18 [History] Lidocaine/Prilocaine [Emla] 1 appl TP DAILY #30 gm 02/02/18 [Rx] Magic Mouthwash [Magic Mouthwash BLM] 10 ml PO QID PRN #240 ml 02/02/18 [Rx] Multivitamin [One Daily Essential] 1 each PO DAILY 02/02/18 [History] Dronabinol [Marinol] 5 mg PO BID 30 Days #60 capsule 03/02/18 [Rx] Mirtazapine [Remeron] 15 mg PO HS #30 tablet 03/23/18 [Rx] Ondansetron [Zofran] 8 mg PO Q8HR PRN #30 tablet 03/30/18 [Rx] OxyCODONE/APAP 10/325 [Percocet 10/325 MG] 1 each PO Q6HR PRN 30 Days #120 tablet 04/25/18 [Rx] Buspirone HCl [Buspar] 10 mg PO BID 30 Days #60 tablet 06/02/18 [Rx] Dexamethasone [Decadron] 2 mg PO BID 30 Days #30 tab 06/02/18 [Rx] hydrOXYzine HCl [Hydroxyzine HCl] 25 mg PO TID 06/02/18 [History] Alendronate Sodium [Fosamax] 70 mg PO ZAYAS 06/05/18 [History] Lactobacillus Acidophilus [Acidophilus Probiotic] 1 mg PO DAILY 06/05/18 [History] Loratadine [Allergy Relief] 10 mg PO DAILY 06/05/18 [History] Montelukast [Singulair] 5 mg PO DAILY 06/05/18 [History] Potassium Gluconate [Potassium] 99 mg PO DAILY 06/05/18 [History] Dexamethasone 4 mg PO BID #28 tab 06/06/18 [Rx] levoFLOXacin [Levaquin] 750 mg PO DAILY 7 Days #7 tablet 06/06/18 [Rx] Allergies/Adverse Reactions: Allergy/AdvReac Type Severity Reaction Status Date / Time Sulfa (Sulfonamide AdvReac Rash Verified 02/19/17 16:07 Antibiotics) - Respiratory Orders Oxygen / L per min Smoking Cessation: Smoking cessation has been advised. For more information, call the [facility] [employer] [facility]uit Line at 3-535-FYAX-NOW. - Advance Directives Code Status: DNR-Arrest/Don't Intubate - Mobility Orders Other - Rehabiliation Orders Rehab Orders: Evaluation for Physical Therapy, Evaluation for Occupational Therapy - Diet Orders Regular CERTIFICATION: I certify that the transfer of the above named patient to an Extended Care Facility is necessary for the continuing treatment of the diagnosis listed. The above information is true and accurate reflection of patient's current condition. Confidential - Redisclosure prohibited without a patient's written consent.
--- NOTE | 2018-06-10 18:23 | Electrocardiograph Report ---
[address] [place], [place] [address] Test Date: 2018-06-04 Pat Name: Yeny Mckoy Department: [id number] Room: 2A37 Gender: F Semiconductor Development Technician: : 1950 Requested By: Jose Martinez Order Number: [id number] Reading MD: Indra Shultz Measurements Intervals [place] Rate: 101 P: 100 TN: 129 QRS: -82 QRSD: 84 T: 94 QT: 355 QTc: 461 Interpretive Statements Sinus tachycardia Ventricular premature complex Left anterior fascicular block Possible anteroseptal infarct, age indeterminate Electronically Signed On 06-10-2018 18:21:42 EDT by Indra Shultz
== END 2018-06-07 17:18 | disposition home or self-care (01) | DRG 193 ==
LOC: EMEROOARM 16:32 → 2NNU 16:32 → SUATTDRO 22:21 → 2ANU 06-06 20:27
PROVIDERS: ADMIT Internal Medicine; ATTEND Hospitalist